=== PATIENT | female | born 1960 | race Caucasian/White ===

== ENCOUNTER 2024-01-14 10:08 | Outpatient (REF) | payer BC, SELFPAY ==
[2024-01-14 11:03] LABS: Prothrombin Time 70.2 SEC (11.1-13.3)
[2024-01-14 11:24] LABS: INTERNATIONAL NORM RATIO 5.8 (0.9-1.1)
== END 2024-01-14 10:09 | disposition home or self-care (01) ==
LOC: HO.LABR 10:08
PROVIDERS: Visit Provider Nurse Practitioner Acute Care
DX: D68.61 Antiphospholipid syndrome (principal)
CPT/HCPCS: 36415; 85610

== ENCOUNTER 2024-01-23 13:30 | Outpatient (REF) | payer BC, SELFPAY ==
[2024-01-23 14:41] LABS: INTERNATIONAL NORM RATIO 1.1 (0.9-1.1); Prothrombin Time 12.8 SEC (11.1-13.3)
== END 2024-01-23 13:31 | disposition home or self-care (01) ==
LOC: HO.LABR 13:30
PROVIDERS: Visit Provider Nurse Practitioner Acute Care
DX: D68.61 Antiphospholipid syndrome (principal)
CPT/HCPCS: 36415; 85610

== ENCOUNTER 2024-01-26 10:39 | Outpatient (REF) | payer BC, SELFPAY ==
[2024-01-26 11:42] LABS: Prothrombin Time 11.6 SEC (11.1-13.3)
== END 2024-01-26 10:40 | disposition home or self-care (01) ==
LOC: HO.LABR 10:39
PROVIDERS: PCP Internal Medicine; Visit Provider Nurse Practitioner Acute Care
DX: D68.61 Antiphospholipid syndrome (principal)
CPT/HCPCS: 36415; 85610

== ENCOUNTER 2024-01-30 13:22 | Outpatient (REF) | payer BC, SELFPAY ==
[2024-01-30 15:07] LABS: INTERNATIONAL NORM RATIO 1.3 (0.9-1.1); Prothrombin Time 16.2 SEC (11.1-13.3)
== END 2024-01-30 13:23 | disposition home or self-care (01) ==
LOC: HO.LAB 13:22
PROVIDERS: PCP Internal Medicine; Visit Provider Nurse Practitioner Acute Care
DX: D68.61 Antiphospholipid syndrome (principal)
CPT/HCPCS: 36415; 85610

== ENCOUNTER 2024-02-01 15:42 | Outpatient (REF) | payer BC, SELFPAY ==
[2024-02-01 16:07] LABS: INTERNATIONAL NORM RATIO 1.8 (0.9-1.1); Prothrombin Time 21.4 SEC (11.1-13.3)
== END 2024-02-01 15:43 | disposition home or self-care (01) ==
LOC: HO.LABR 15:42
PROVIDERS: Visit Provider Nurse Practitioner Acute Care
DX: D68.61 Antiphospholipid syndrome (principal)
CPT/HCPCS: 36415; 85610

== ENCOUNTER 2024-02-06 11:42 | Outpatient (REF) | payer BC, SELFPAY ==
[2024-02-06 12:51] LABS: INTERNATIONAL NORM RATIO 2.4 (0.9-1.1); Prothrombin Time 28.7 SEC (11.1-13.3)
== END 2024-02-06 11:43 | disposition home or self-care (01) ==
LOC: HO.LAB 11:42
PROVIDERS: PCP Internal Medicine; Visit Provider Nurse Practitioner Acute Care
DX: D68.61 Antiphospholipid syndrome (principal)
CPT/HCPCS: 36415; 85610

== ENCOUNTER 2024-02-13 11:48 | Outpatient (REF) | payer BC, SELFPAY ==
[2024-02-13 13:02] LABS: INTERNATIONAL NORM RATIO 3.2 (0.9-1.1); Prothrombin Time 39.2 SEC (11.1-13.3)
== END 2024-02-13 11:49 | disposition home or self-care (01) ==
LOC: HO.LABR 11:48
PROVIDERS: PCP Internal Medicine; Visit Provider Nurse Practitioner Acute Care
DX: D68.61 Antiphospholipid syndrome (principal)
CPT/HCPCS: 36415; 85610

== ENCOUNTER 2024-03-05 13:48 | Outpatient (REF) | payer BC, SELFPAY ==
[2024-03-05 15:19] LABS: INTERNATIONAL NORM RATIO 2.3 (0.9-1.1); Prothrombin Time 28.6 SEC (11.1-13.3)
== END 2024-03-05 13:49 | disposition home or self-care (01) ==
LOC: HO.LAB 13:48
PROVIDERS: PCP Internal Medicine; Visit Provider Nurse Practitioner Acute Care
DX: D68.61 Antiphospholipid syndrome (principal)
CPT/HCPCS: 36415; 85610

== ENCOUNTER 2025-03-12 13:41 | Outpatient (REF) | payer MEDICARE, BC, SELFPAY ==
--- OUTSIDE RECORDS SUMMARY | 2008-06-05 01:00 | XMS_ITS | Encounter Summary ---
Author Organization [facility] Address [address] [place] [address] [address] [place] [address] Phone Care Team Providers Care Records Management Engineer Name Role Phone Unavailable Primary Care Provider Unavailabl e Reason for Visit * MRI/CAT Scan - Closed Specialty Diagnoses / Procedures Referred By Contac t Referred To Contact Procedures CT Abdomen Outside (No Interpretation) Sammi Moraes MD [address] [place], [place] [address] [place] [address] Phone: tel: fax: Referral ID Status Reason Start Date Expiration Date Visits Re quested Visits Authorized [id number] Closed 05/31/2016 05/31/2017 1 1 Encounter Details Date Type Department Care Team (Late st Contact Info) Description 06/05/2008 Hospital Encounter [facility] General Imaging [address] [place] [address] Sammi Moraes MD [address] [place] [address] [address] [place] [address] Social History Tobacco Use Types Packs/Day Years [...] Care Team (Late st Contact Info) Description 03/18/2025 1:45 PM EDT Office Visit [facility] [address] [place] [address] Cheyanne Galdamez MD [address] [facility] [address] [place] [address] documented as of this encounter Procedures Procedure Name Priority Date/Time Associated Diagnosis Comments CT ABDOMEN OUTSIDE (NO INTERPRETATION) Routine 06/05/2008 12:00 AM EST documented in this encounter Results * CT Abdomen Outside (No Interpretation) (06/05/2008 12:00 AM EST) Narrative [facility] [place] [facility] [place] - 05/31/2016 2:20 PM EST This study is for PACS storage only and not for interpretation. us Sammi Moraes MD IMG OUTSIDE IMAGING W/OUT INTE RPRETATION Final Result [facility] [place] [facility] documented in this encounter Visit Diagnoses Not on filedocumented in this encounter Additional Source Comments The information contained in this document represents components of the legal health record. It is not the complete legal health record.[facility]
--- OUTSIDE RECORDS SUMMARY | 2015-01-06 | XMS_ITS | Encounter Summary ---
Author Organization [facility] Address [address] [place] [address] [place] [address] Phone Care Team Providers Care Silica Dry Press Helper Name Role Phone Karen Reich MD Primary Care Provider Reason for Visit * MRI/CAT Scan - Closed Specialty Diagnoses / Procedures Referred By Contac t Referred To Contact Procedures CT Abdomen Outside (No Interpretation) Sammi Moraes MD [address] [place] [address] Phone: tel: fax: Referral ID Status Reason Start Date Expiration Date Visits Re quested Visits Authorized [id number] Closed 05/31/2016 05/31/2017 1 1 Encounter Details Date Type Department Care Team (Late st Contact Info) Description 01/06/2015 Hospital Encounter [facility] [address] [place] [address] Sammi Moraes MD [address] [place] [address] Social History Tobacco Use Types Packs/Day Years [...] Visit [facility] [address] [place] [address] Cheyanne Galdamez MD [address] [place] [address] [address] [place] [address] documented as of this encounter Procedures Procedure Name Priority Date/Time Associated Diagnosis Comments CT ABDOMEN OUTSIDE (NO INTERPRETATION) Routine 01/06/2015 12:00 AM EDT documented in this encounter Results * CT Abdomen Outside (No Interpretation) (01/06/2015 12:00 AM EDT) Narrative [facility] [place] [place]FACES - 05/31/2016 2:20 PM EST This study is for PACS storage only and not for interpretation. Sammi Moraes MD IMG OUTSIDE IMAGING W/OUT INTE RPRETATION Final Result [facility] [place] [facility] documented in this encounter Visit Diagnoses Not on filedocumented in this encounter Care Teams Silica Dry Press Helper Relationship Specialty Start Date End Date Karen Reich MD [address] [place] [address] PCP - General 01/07/14 documented as of this encounter Additional Source Comments The information contained in this document represents components of the legal health record. It is not the complete legal health record.[facility]
[2025-03-12 14:44] LABS: INTERNATIONAL NORM RATIO 2.9 (0.9-1.1); Prothrombin Time 33.2 SEC (10.9-12.4)
--- OUTSIDE RECORDS SUMMARY | 2025-03-12 14:57 | XMS_ITS | Encounter Summary ---
Author Organization [facility] Address [address] [place] [address] [address] [place] [address] Phone Care Team Providers Care Respooler Name Role Phone Karen Reich MD Primary Care Provider Terrell Canales MD Unavailable [phone] Anjana Luna MD Unavailable [phone] Daniel Frederick MD Unavailable [phone] Aston Bolanos MD Unavailable [phone] Encounter Details Date Type Department Care Team (Late Contact Info) Description 08/03/2016 Procedure Pass [facility] [address] [place] [address] Social History Tobacco Use Types Packs/Day Years Used Date Smoking Tobacco: Never Alcohol Use Standard Drinks/Week Comments No 0 (1 standard drink = 0.6 oz pur e alcohol) Comments Unknown Sex and Gender Information Value Date Recorded Sex Assigned at Not on file Legal Sex Female 7:02 PM EST Gender Identity Not on file Sexual Orientation Not on file documented as of this encounter Plan of Treatment Upcoming Encounters Date Type Department Care Team (Late Contact Info) Description 03/18/2025 1:45 PM EDT Office Visit [facility] [address] [place] [phone] Cheyanne Galdamez MD [address] [place] [address] [address] [place] [address] documented as of this encounter Visit Diagnoses Not on filedocumented in this encounter Additional Health Concerns Assessment Noted Time PHQ-2 Depression Total Score: 0 06/08/20 16 1:53 PM EST documented as of this encounter Care Teams Respooler Relationship Specialty Start Date End Date Karen Reich MD [address] [place] [address] PCP - General 01/07/14 Terrell Canales MD [address] [place] [address] General Surgery 02/15/19 Anjana Luna MD [address] [place] [address] [email or web address] Hematology and Oncology 02/15/19 Daniel Frederick MD [address] [place] [address] [email or web address] Radiation Oncology 02/15/19 Aston Bolanos MD [address] [place] [address] [email or web address] 02/26/19 documented as of this encounter Additional Source Comments The information contained in this document represents components of the legal health record. It is not the complete legal health record.[facility]
--- OUTSIDE RECORDS SUMMARY | 2025-03-12 14:57 | XMS_ITS | Clinical Summary ---
Author Organization [facility] Address [address] [place] [address] Phone Care Team Providers Care Chain Hoist Operator Name Role Phone Karen Reich MD Primary Care Provider Terrell Canales MD Unavailable [phone] Anjana Luna MD Unavailable [phone] Daniel Frederick MD Unavailable [phone] Aston Bolanos MD Unavailable [phone] Allergies Active Allergy Reactions Criticality Noted Date Comments Bactrim (Sulfamethoxazole-Tri methoprim) Fever High 12/16/2015 Fentanyl Shortness Of Breath High 11/30/2022 Fentanyl Citrate (Pf) Medium 12/29/2022 Other reaction(s): Hypoxia Lisinopril Other (See Comments) Low 07/08/2016 Other reaction(s): Other (See Comments) cough Other reaction(s): Cough Sulfamethoxazole-Trim ethoprim Itching,Hives,Rash,F ever,Other (See Comments) High 02/02/2010 Other reaction(s): FEVER, HIVES, ITCHING, RASH, Urticarial Rash fever Medications atorvastatin (LIPITOR) 40 MG tablet daily. 5 Active FLUoxetine (PROZAC) 20 MG tablet 40 mg daily. 5 Active hydrochlorothi azide (HYDRODIURIL) 25 MG tablet daily. 5 Active losartan (COZAAR) 100 MG tablet daily. 5 Active metFORMIN (GLUCOPHAGE) 500 MG tablet Take 1,000 mg by mouth 2 (two) times a day. 5 Active omeprazole (PRILOSEC) 40 MG capsule Take 40 mg by mouth daily. 8 Active warfarin (COUMADIN) 2.5 MG tablet Take 2.5 mg by mouth daily. Alternates between 2.5 mg and 5 mg daily 7 Active budesonide-for moterol (SYMBICORT) 80-4.5 mcg/actuation inhaler Inhale 2 puffs into the lungs 2 (two) times a day. Active metoprolol succinate 100 mg CSpX Take 100 mg by mouth daily. Active tiotropium (SPIRIVA HANDIHALER) 18 mcg inhalation capsule Inhale 18 mcg into the lungs daily. Active levalbuterol (XOPENEX HFA) 45 mcg/actuation inhaler Inhale 1-2 puffs into the lungs every 4 (four) hours as needed for wheezing. Active fluticasone propionate (FLONASE) 50 mcg/actuation nasal spray 1 spray by Nasal route daily. Active montelukast (SINGULAIR) 10 mg tablet TAKE 1 TABLET AT BEDTIME 90 tablet 5 7 Active acetaminophen (TYLENOL) 325 mg tablet Take 650 mg by mouth every 6 (six) hours as needed for mild pain. Active calcium carbonate-yuliet min D3 1500 mg (600 mg elemental)-400 units per tablet Take 1 tablet by mouth 2 (two) times a day. Active finasteride (PROSCAR) 5 mg tablet Take 5 mg by mouth daily. Active ketoconazole 2 % cream Apply 1 application topically daily. Active LORazepam (ATIVAN) 0.5 MG tablet Take 0.5 mg by mouth 2 (two) times a day as needed for anxiety. Active betamethasone, augmented, (DIPROLENE) 0.05 % ointmentIndica tions:Malignan t neoplasm of upper-outer quadrant of left breast in female, estrogen receptor positive Apply topically 2 (two) times a day. 30 g 3 9 Active ASCORBIC ACID ORAL C 500 500 MG TABS Ac tive triamcinolone acetonide 0.1 % cream TRIAMCINOLONE ACETONIDE 0.1 % CREA 3 Active levothyroxine (SYNTHROID,LEV OTHROID) 25 MCG tablet Take 25 mcg by mouth daily. 3 Active Active Problems Problem Noted Date Diagnosed Date History of basal cell carcinoma (BCC) 12/02/2022 Overview (12/13/2024): 09/09/22: Left [place]: Bcc sup/nod tx mohs 12/13/24 approx 09/2016, left upper back, tx ED&C--outside derm no path on file Inflamed seborrheic keratosis 09/09/2022 Melanocytic nevi of trunk 09/10/20212022 Unspecified lump in the left breast, upper outer quadrant 04/22/2021 11/26/2022 Milia 12/25/2020 11/26/2022 Other rosacea 10/02/2020 11/26/2022 Lichen simplex chronicus 04/23/2020 023 Plantar wart 02/28/2020 11/26/2022 Granuloma annulare 12/26/2019 11/26/2022 Eczematid-like purpura of doucas and kapetanakis 10/25/2019 11/26/2022 Malignant neoplasm of upper- outer quadrant of left breast in female, estrogen receptor positive 02/26/2019 Abnormal chest xray 02/15/2019 11/26/2022 Pulmonary nodule, left 02/15/2019 3 Malignant neoplasm of central portion of left fe male breast 02/12/2019 12/17/2022 Other viral warts 12/25/2018 11/26/2022 Intrinsic (allergic) eczema 06/26/201811/08 Seborrheic dermatitis 06/26/2018 11/26/2022 Antiphospholipid antibody syndrome 03/18/2017 11/26/2022 Seborrheic keratosis 03/18/2017 12/17/2022 Asthma 10/08/2014 Overview (06/18/2015): Asthma Congestive heart failure 10/08/2014 Overview (06/18/2015): Congestive heart failure Diabetes mellitus 07/15/2011 Overview (08/31/2014): Diabetes mellitus Hypertensive disorder 07/15/2011 Overview (08/31/2014): Hypertensive disorder Thyroid nodule 05/23/2008 Overview (08/31/2014): Thyroid nodule Resolved Problems Problem Noted Date Diagnosed Date Resolved Date Basal cell carcinoma (BCC) o f helix of left ear 12/10/2024 12/13/2024 Overview (12/13/2024): 09/09/22: Left [place]: Bcc sup/nod tx mohs 12/13/24 Encounters Date Type Department Care Team Description 12/27/2024 2:15 PM EDT Office Visit [facility], [address] [phone] Catrachito Raymundo MD Encounter for removal of sutures (Primary Dx) 12/13/2024 1:30 PM EDT Office Visit [facility], [address] [phone] Catrachito Raymundo MD Basal cell carcinoma (BCC) of helix of left ear (Primary Dx); History of basal cell carcinoma (BCC) from Last 3 Months Immunizations Immunization Administration Dates Next Due Influenza, Unspecified Formulation 07/15/2011, Pneumococcal polysaccharide PPSV23 07/15/2011 Family History Medical History Relation Comments Breast cancer Paternal Grandmother Relation Status Comments Paternal Grandmother Social History Tobacco Use Types Packs/Day Years [...] on file Sexual Orientation Not on file Last Filed Vital Signs Vital Sign Reading Time Taken Comments Blood Pressure 137/79 03/03/2023 9:45 AM EDT Pulse 71 03/03/2023 9:45 AM EDT Temperature 36.3 C (97.4 F) 03/03/2023 9:45 AM EDT Respiratory Rate 20 03/03/2023 9:45 AM EDT Oxygen Saturation 98% 03/03/2023 9:45 AM EDT Inhaled Oxygen Concentration - - Weight 87 kg (191 lb 12.8 oz) 03/03/2023 9:45 AM EDT Height 167.6 cm (5' 6 ) 02/01/2022 1:06 PM EDT Body Mass Index 30.96 02/01/2022 1:06 PM EDT Plan of Treatment Upcoming Encounters Date Type Department Care Team (Late st Contact Info) Description 03/18/2025 1:45 PM EDT [facility] [address] [place] [phone] Cheyanne Galdamez MD [address] [place] [address] [address] [place] [address] Health Maintenance Due Date Last Done Comments Adult Td,Tdap Booster 1960 POTASSIUM LEVEL 1960 HEPATITIS C SCREENING 12/21/1977 HIV ONE-TIME SCREENING (18-65 YEARS) 12/21/1977 COLOGUARD 12/21/2004 COLONOSCOPY 12/21/2004 COLORECTAL CANCER SCREENING 12/21/2004 FIT TEST 12/21/2004 FOBT 12/21/2004 SIGMOIDOSCOPY 12/21/2004 VIRTUAL COLONOSCOPY 12/21/2004 PNEUMOCOCCAL VACCINES (50+ years) (2 of 2 - PCV) 07/15/2012 07/15/2011 DIABETIC EYE EXAM 08/31/2014 DEPRESSION SCREENING 04/12/2018 04/12/2017 RSV VACCINE (1 - Risk 60-74 years 1-dose series) 2019 ZOSTER VACCINES (2 of 2) 07/03/2020 05/08/2020 BLOOD PRESSURE 09/03/2023 03/03/2023 CREATININE LEVEL 11/21/2024 11/22/2023 INFLUENZA VACCINE (#1) 2025 , 04/19/2019, 03/22/2018, Additional history exists COVID-19 VACCINE ( season) 2025 HEMOGLOBIN A1C 05/30/2025 11/27/2024, 05/2 , 05/03/2024, Additional history exists TSH LEVEL 07/13/2025 07/13/2024, 06/10, 02/20/2024, Additional history exists MAMMOGRAM 03/08/2026 03/08/2024, 01/08, 12/25/2018, Additional history exists OSTEOPOROSIS SCREENING INITIAL (ONE-TIME) Completed 08/24/2021, 02/08/2019 SMOKING STATUS SCREENING (Once After 26 Yrs) Completed 03/03/2023 HEPATITIS A VACCINES Aged Out No long er eligible based on patient's age to complete this topic HIB VACCINES Aged Out No longer eligi ble based on patient's age to complete this topic MENINGOCOCCAL VACCINES (ACWY) Aged Out No longer eligible based on patient's age to complete this topic MENINGOCOCCAL VACCINES (B) Aged Out N o longer eligible based on patient's age to complete this topic Medical Devices Not on file Procedures Procedure Name Priority Date/Time Associated Diagnosis Comments BI MAMMOGRAM SCREENING WITH TOMOSYNTHESIS WITH CAD (BILATERAL) 03/08/2024 1:47 PM EDT TSH WITH REFLEX Routine 10/24/2015 10:09 AM EDT Thyroid nodule from Last 3 Months or Most Recently Relevant to Health Maintenance Results * Mammogram Screening With Tomosynthesis With CAD (Bilateral) (03/08/2024 1:47 PM EDT) Anatomical Region Laterality Modality Breast Left, Breast Right, Breast Bilateral Bila teral Breast Screening 03/08/2024 1:47 PM EDT Narrative 03/08/2024 4:34 PM EDT [facility] Department of Radiology [id number] Screening Bilateral with Josef PATIENT HISTORY: 63 years old woman for routine bilateral screening mammogram. Screening Bilateral with Josef: 03/08/2024 - Exam #: [id number] COMPARISON: Multiple studies dating back to 2020. TISSUE DENSITY: There are scattered areas of fibroglandular density. FINDINGS: No suspicious calcifications, masses or other abnormalities are seen. Multiple surgical clips are seen in the upper outer posterior left breast along with mild distortion consistent with prior surgery. The results of this exam have been conveyed to the patient in writing. The patient was entered into a reminder system for a target due date for patient's next mammogram. Full field 2D digital mammography was used to obtain images. Computer aided detection was used to aid in interpretation. Digital breast tomosynthesis was performed and used in the interpretation of the images. IMPRESSION: 1. No significant interval change in the appearance of the breasts. 2. Negative, no evidence of malignancy. ASSESSMENT: Overall - BIRADS Code 1: Negative RECOMMENDATION: Screening Mammogram of both breasts in 1 year. Reported By: Allan Bearden MD Signed By: Allan Bearden MD Procedure Note Allan Bearden MD - 03/08/2024 [facility] Department of Radiology [id number] Screening Bilateral with Josef PATIENT HISTORY: 63 years old woman for routine bilateral screening mammogram. Screening Bilateral with Josef: 03/08/2024 - Exam #: [id number] COMPARISON: Multiple studies dating back to 2020. TISSUE DENSITY: There are scattered areas of fibroglandular density. FINDINGS: No suspicious calcifications, masses or other abnormalities are seen. Multiple surgical clips are seen in the upper outer posterior left breast along with mild distortion consistent with prior surgery. The results of this exam have been conveyed to the patient in writing. The patient was entered into a reminder system for a target due date for patient's next mammogram. Full field 2D digital mammography was used to obtain images. Computer aided detection was used to aid in interpretation. Digital breast tomosynthesis was performed and used in the interpretation of the images. IMPRESSION: 1. No significant interval change in the appearance of the breasts. 2. Negative, no evidence of malignancy. ASSESSMENT: Overall - BIRADS Code 1: Negative RECOMMENDATION: Screening Mammogram of both breasts in 1 year. Reported By: Allan Bearden MD Signed By: Allan Bearden MD us Provider Not In System PhD IMG MG EXAMS Final Result * Thyroid screening panel ([facility] Only) (10/24/2015 10:09 AM EDT) SCREENING PANEL: TSH 2.77 0.40 - 5.00 uIU/mL [facility] 10/24/2015 10:0 9 AM EDT 10/24/2015 1:19 PM EDT us Miko Rosado MD LAB BLOOD ORDERABLES Final Res ult [facility] [address] [place] [address] from Last 3 Months or Most Recently Relevant to Health Maintenance Insurance PPO EPO [facility] PPO EPO [facility] PPO EPO [facility] PPO EPO [facility] PPO EPO [facility] PPO [facility]PO PPO EPO [facility] PPO EPO Care Teams Chain Hoist Operator Relationship Specialty Start Date End Date Karen Reich MD [address] [place] [address] PCP - General 01/07/14 Terrell Canales MD [address] [place] [address] General Surgery 02/15/19 Anjana Luna MD [address] [place] [address] [email or web address] Hematology and Oncology 02/15/19 Daniel Frederick MD [address] [place] [address] [email or web address] Radiation Oncology 02/15/19 Aston Bolanos MD [address] [place] [address] [email or web address] [place] 02/26/19 Additional Source Comments The information contained in this document represents components of the legal health record. It is not the complete legal health record.[facility]
--- OUTSIDE RECORDS SUMMARY | 2025-03-12 14:57 | XMS_ITS | Encounter Summary ---
Author Organization [facility] Address [address] [place] [address] [address] [place] [address] Phone Care Team Providers Care Senior Applications Engineer Name Role Phone Karen Reich MD Primary Care Provider Terrell Canales MD Unavailable [phone] Anjana Luna MD Unavailable [phone] Danile Frederick MD Unavailable [phone] Aston Bolanos MD Unavailable [phone] Encounter Details Date Type Department Care Team (Late Contact Info) Description 05/31/2016 Procedure Pass [facility] Imaging [address] [place] [address] Social History Tobacco Use Types Packs/Day Years Used Date Smoking Tobacco: Never Smokeless Tobacco: Never Alcohol Use Standard Drinks/Week Comments Yes 0 (1 standard drink = 0.6 oz pur e alcohol) Rarely Comments Unknown Sex and Gender Information Value Date Recorded Sex Assigned at Not on file Legal Sex Female 7:02 PM EST Gender Identity Not on file Sexual Orientation Not on file documented as of this encounter Plan of Treatment Upcoming Encounters Date Type Department Care Team (Late Contact Info) Description 03/18/2025 1:45 PM EDT Office Visit [facility] [address] [place] [phone] Cheyanne Galdamez MD [address] [place] [address] [address] [place] [address] documented as of this encounter Visit Diagnoses Not on filedocumented in this encounter Care Teams Senior Applications Engineer Relationship Specialty Start Date End Date Karen Reich MD [address] [place] [address] PCP - General 01/07/14 Terrell Canales MD [address] [place] [address] General Surgery 02/15/19 Anjana Luna MD [address] [place] [address] [email or web address] Hematology and Oncology 02/15/19 Daniel Frederick MD [address] [place] [address] [email or web address] Radiation Oncology 02/15/19 Aston Bolanos MD [address] [place] [address] [email or web address] Cardiology 02/26/19 documented as of this encounter Additional Source Comments The information contained in this document represents components of the legal health record. It is not the complete legal health record.[facility]
--- OUTSIDE RECORDS SUMMARY | 2025-03-12 14:57 | XMS_ITS | Encounter Summary ---
Author Organization [facility] Address [address] [place] [address] [address] [place] [address] Phone Care Team Providers Care Poultry Sexer Name Role Phone Karen Reich MD Primary Care Provider Terrell Canales MD Unavailable [phone] Anjana Luna MD Unavailable [phone] Daniel Frederick MD Unavailable [phone] Aston Bolanos MD Unavailable [phone] Encounter Details Date Type Department Care Team (Late Contact Info) Description 05/31/2016 Procedure Pass [facility] [address] [place] [address] Social History Tobacco Use Types Packs/Day Years [...] Office Visit [facility] [address] [place] [phone] Cheyanne Galdamez MD [address] [place] [address] [address] [place] [address] documented as of this encounter Visit Diagnoses Not on filedocumented in this encounter Care Teams Poultry Sexer Relationship Specialty Start Date End Date Karen Reich MD [address] [place] [address] PCP - General 01/07/14 Terrell Canales MD [address] [place] [address] General Surgery 02/15/19 Anjana Luna MD [address] [place] [address] [email or web address]. [place] Hematology and Oncology 02/15/19 Daniel Frederick MD [address] [place] [address] [email or web address] Radiation Oncology 02/15/19 Aston Bolanos MD [address] [place] [address] [email or web address] Cardiology 02/26/19 documented as of this encounter Additional Source Comments The information contained in this document represents components of the legal health record. It is not the complete legal health record.[facility]
--- OUTSIDE RECORDS SUMMARY | 2025-03-12 14:58 | XMS_ITS | Clinical Summary ---
Author Organization [facility] Address [address] [place] [address] Care Team Providers Care Wire Stitcher Name Role Phone Karen Reich Primary Care Provider [phone] Allergies Active Allergy Reactions Criticality Noted Date Comments Sulfamethoxazole W-Trimethoprim Urticarial Rash,Other 08/26/2015 fever Medications Warfarin Sodium 5 MG Tab take as directed Active MetFORMIN HCl 500 MG Tab 1 TABLET TWICE DAILY WITH FOOD Active Hydrochlorothia zide 25 MG Tab 1 TABLET DAILY Active Omeprazole 40 MG CAPSULE DELAYED RELEASE 1 CAPSULE DAILY Active Montelukast Sodium (SINGULAIR) 10 MG Tab 1 TABLET EVERY EVENING Active ALBUTEROL SULFATE (PROAIR HFA) 108 (90 BASE) MCG/ACT Aero Soln None Entered Active Simvastatin 20 MG Tab 1 TABLET AT BEDTIME Active Active Problems Problem Noted Date Diagnosed Date Chronic left hip painPT 04/11/2021 Left leg pain Pt 04/11/2021 Achilles tendinitis of both lower extremitiesPT 02/18/2021 Obstructive sleep apnea 04/15/2015 Immunizations Immunization Administration Dates Next Due COVID-19, mRNA (Pfizer Pre F all 2022) Monovalent, 30 mcg/0.3 ml 10/21/2020 Social History Tobacco Use Types Packs/Day Years Used Date Smoking Tobacco: Never Alcohol Use Standard Drinks/Week Comments Not Asked 0 (1 standard drink = 0.6 oz pur e alcohol) Intimate Partner Violence Answer Date R ecorded Fear of Current or Ex-Partner Not on file Emotionally Abused Not on file 03/12/2023 Physically Abused Not on file 03/12/2023 Sexually Abused Not on file 03/12/2023 Feel Safe at Home Not on file 03/12/2023 Comments No Sex and Gender Information Value Date Recorded Sex Assigned at Not on file Legal Sex Female 3:01 PM EDT Gender Identity Not on file Sexual Orientation Not on file Last Filed Vital Signs Vital Sign Reading Time Taken Comments Blood Pressure 130/80 01/21/2016 5:21 PM EDT Pulse 78 01/21/2016 5:21 PM EDT Temperature 36.8 C (98.2 F) 01/21/2016 5:21 PM EDT Respiratory Rate 16 01/21/2016 5:21 PM EDT Oxygen Saturation - - Inhaled Oxygen Concentration - - Weight 102 kg (225 lb) 01/21/2016 5:21 PM EDT Height 170.2 cm (5' 7 ) 01/28/2015 10:27 AM EDT Body Mass Index 35.24 01/28/2015 10:27 AM EDT Plan of Treatment Health Maintenance Due Date Last Done Comments Hepatitis C Screening 1960 DTaP/Tdap/Td (1 - Tdap) 12/21/1977 Mammogram/Breast Imaging 1999 Colon Cancer Screening 12/21/2004 Pneumococcal 50+ years (1 of 1 - PCV) 12/21/2009 Zoster (Shingrix) (1 of 2) 12/21/2009 Bone Density 12/21/2024 COVID-19 Vaccine (3 - season) 2025 11/18/2020, 10/21/2020 Influenza (#1) 2025 04/10/2021, 04/11, 04/19/2019, Additional history exists RSV (1 - 1-dose 75+ series) 12/21/2034 HPV Vaccine (No Doses Required) Completed Hep A Aged Out No longer eligi ble based on patient's age to complete this topic Hep B Aged Out No longer eligi ble based on patient's age to complete this topic Hib Aged Out No longer eligi ble based on patient's age to complete this topic Meningococcal ACWY Aged Out No longer eligible based on patient's age to complete this topic Pap Smear Discontinued Zoster (Zostavax) Discontinued Insurance [employer] FEE FOR SERVICE PPO Care Teams Wire Stitcher Relationship Specialty Start Date End Date Karen Reich [address] [place] [id number] PCP - General Internal Medicine 12/05/14
--- OUTSIDE RECORDS SUMMARY | 2025-03-12 14:58 | XMS_ITS | Encounter Summary ---
Author Organization [facility] Address [address] [place] [address] Care Team Providers Care Digital X Ray Service Engineer Name Role Phone Karen Reich MD Primary Care Provider [phone] Encounter Details Date Type Department Care Team ([facility] st Contact Info) Description 02/27/2025 Results Follow-Up [facility] Cardiology [address] [place] [address] Scott Goncalves MD [address] [place] [address] Social History Tobacco Use Types Packs/Day Years Used Date Smoking Tobacco: Never Passive Smoke Exposure: Never Smokeless Tobacco: Never Comments:: Alcohol Use Standard Drinks/Week Comments Not Currently 0 (1 standard drink = 0.6 oz pur e alcohol) [facility] Utilities Answer Date Recorded In the past 12 months has e electric, gas, oil, or water company threatened to shut off services in your home? Already shut off 07/26/2024 Hunger Vital Sign Answer Date Recorded Within the past 12 months, y ou worried that your food would run out before you got the money to buy more. Never true 07/26/19 25 Within the past 12 months, t he food you bought just didn't last and you didn't have money to get more. Never true 07/26/2024 Transportation Answer Date Recorded In the past 12 months, has l ack of reliable transportation kept you from medical appointments, meetings, work or from getting things needed for daily living? No 07/26/2024 Housing Answer Date Recorded Housing Risk Low Not on file 07/26/2024 Housing Risk Medium 1 07/26/2024 Housing Risk High 1 07/26/2024 What is your living situation today? 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 Not on file Not on file Not on file documented as of this encounter Plan of Treatment Upcoming Encounters Date Type Department Care Team (Late st Contact Info) Description 03/13/2025 2:00 PM EDT Telehealth [facility] Antico[facility] [address] [place] [address] Phd Internship: Al Zhou NP [address] [place] [address] Arrived 03/20/2025 1:30 PM EDT Follow-Up [facility] [address] [place] [address] Shawna Camara MD [address] [place] [address] 03/25/2025 1:00 PM EDT Evaluation [facility] at [address] [place] [address], [address] [address] Phd Internship: Keke Nath PT 03/28/2025 1:15 PM EDT Follow-Up [facility] at [address] [phone] Reina Key OD [address] [place] [address] 03/28/2025 4:20 PM EDT Follow-Up [facility] Building Podiatry [address] [place] [address] Phd Internship: Mel Whitman NP [address] [place] [address] 05/07/2025 3:40 PM EDT Office Visit [facility] Plastic Cosmetic Surgery [address] [place] [address] Phd Internship: Segun Girard MD [address] [place] [address] 12/18/2025 1:00 PM EDT Office Visit [facility] plasma processing technician [address] [place] [address] Libia Bhat MD [address] [place] [address] 12/23/2025 2:40 PM EDT Follow-Up [facility] Endocrinology Clinic [address] [place] [address] Phd Internship: Bran Hobbs MD [address] [place] [address] 12/23/2025 3:45 PM EDT Follow-Up [facility] B [address] [place] [address] Donnie Brasher MD [address] [place] [address] 12/24/2025 10:30 AM EDT Office Visit [facility] Diabetes [facility] [address] [place] [address] Phd Internship: Alfredo Rendon MD [address] [place] [address] 12/24/2025 1:00 PM EDT Follow-Up [facility] [address] [place] [address] Phd Internship: Ayse Resendiz MD [address] [place] [address] 12/27/2025 2:40 PM EDT Office Visit [facility] [address] [place] [address] Phd Internship: Martín Sanchez MD [address] [place] [address] 01/21/2026 3:30 PM EDT Follow-Up [facility] 4th floor Cardiology Medicine [address] [place] [address] Phd Internship: Scott Hutson MD [address] [place] [address] documented as of this encounter Visit Diagnoses Not on filedocumented in this encounter Care Teams Digital X Ray Service Engineer Relationship Specialty Start Date End Date Karen Reich MD [address] [place] [address] PCP - General Internal Medicine 01/27/17 documented as of this encounter
--- OUTSIDE RECORDS SUMMARY | 2025-03-12 14:58 | XMS_ITS | Encounter Summary ---
Author Organization [facility] Address [address] [place] [address] Care Team Providers Care Rn Residential Name Role Phone Karen Reich MD Primary Care Provider Reason for Visit * Reason Onset Date Comments Med Refill 03/08/2025 Encounter Details Date Type Department Care Team (Late st Contact Info) Description 03/08/2025 Refill [facility] 4th floor Cardiology Medicine [address] [place] [address] Rock Loader: Scott Hutson MD [address] [place] [address] Social History Tobacco Use Types Packs/Day Years Used Date Smoking Tobacco: Never Passive Smoke Exposure: Never Smokeless Tobacco: Never Comments:: Alcohol Use Standard Drinks/Week Comments Not Currently 0 (1 standard drink = 0.6 oz pur e alcohol) [facility] Utilities Answer Date Recorded In the past 12 months has [employer], gas, oil, or water [employer] threatened to shut off services in your [...] Info) Description 03/13/2025 2:00 PM EDT Telehealth [facility] Anticoagulation Clinic [address] [place] [address] Rock Loader: Al Zhou NP [address] [place] [address] Arrived 03/20/2025 1:30 PM EDT Follow-Up [facility] [address] [place] [address] Shawna Camara MD [address] [place] [address] 03/25/2025 1:00 PM EDT Evaluation [facility] at [address] [place] [address], [address] [address] Rock Loader: Keke Nath, PARI 03/28/2025 1:15 PM EDT Follow-Up [facility] at [address] [phone] Reina Key, OD [address] [place] [address] 03/28/2025 4:20 PM EDT Follow-Up [facility] Podiatry [address] [place] [address] Rock Loader: Mel Whitman NP [address] [place] [address] 05/07/2025 3:40 PM EDT Office Visit [facility] Plastic Cosmetic Surgery [address] [place] [address] Rock Loader: Segun Girard MD [address] [place] [address] 12/18/2025 1:00 PM EDT Office Visit [facility] block out machine operator [address] [place] [address] Libia Bhat MD [address] [place] [address] 12/23/2025 2:40 PM EDT Follow-Up [facility] Endocrinology Clinic [address] [place] [address] Rock Loader: Bran Hobbs MD [address] [place] [address] 12/23/2025 3:45 PM EDT Follow-Up [facility] B [address] [place] [address] Donnie Brasher MD [address] [place] [address] 12/24/2025 10:30 AM EDT Office Visit [facility] [address] [place] [address] Rock Loader: Alfredo Rendon MD [address] [place] [address] 12/24/2025 1:00 PM EDT Follow-Up [facility] Rheumatology Clinic [address] [place] [address] Rock Loader: Ayse Resendiz MD [address] [place] [address] 12/27/2025 2:40 PM EDT Office Visit [facility] [address] [place] [address] Rock Loader: Martín Sanchez MD [address] [place] [address] 01/21/2026 3:30 PM EDT Follow-Up [facility] 4th floor Cardiology Medicine [address] [place] [address] Rock Loader: Scott Hutson MD [address] [place] [address] documented as of this encounter Visit Diagnoses Not on filedocumented in this encounter Care Teams Rn Residential Relationship Specialty Start Date End Date Karen Reich MD [address] [place] [phone] PCP - General Internal Medicine 01/27/17 documented as of this encounter
--- OUTSIDE RECORDS SUMMARY | 2025-03-12 14:58 | XMS_ITS ---
Author Organization [facility] Address [address] [place] [address] Care Team Providers Care Automation Tender Name Role Phone Karen Reich MD Primary Care Provider [phone] Active Problems * This document contains information received from the source organization and may not represent a complete record from that organization. Problem Noted Date Diagnosed Date Iron deficiency anemia 12/25/2024 Acute cough 11/06/2024 Overview (11/06/2024): Patient presents with acute cough which was evaluated at an urgent care clinic. She had a negative COVID test she is not sure whether flu was tested. She was started on azithromycin and Augmentin for possible community-acquired pneumonia. She does report that there may have been some findings on her chest x-ray but we do not have the report to look at currently. She feels much improved already on the antibiotics. Assessment & Plan (11/06/2024 1:26 PM EDT): She will complete the course of antibiotics. She will continue her Symbicort and as needed Xopenex. She will follow-up if symptoms worsen Hemangioma of abdominal wall 07/12/2024 Overview (07/12/2024): Patient has an abdominal wall mass that was ultrasounded and biopsied. 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 She is concerned and feels that the size has increased modestly Assessment & Plan (07/12/2024 12:52 PM EST): Referral to vascular surgery to consider removal Closed three column fracture of thoracic vertebra with delayed healing, subsequent encounter 05/07/2024 Compression fracture of body of thoracic vertebr a 04/09/2024 Benign paroxysmal positional vertigo 02/29/2024 Assessment & Plan (02/29/2024 6:54 PM EDT): Referral for vestibular PT was placed Subclinical hypothyroidism 03/07/2023 Overview (07/12/2024): Patient was previously on levothyroxine 25 mcg daily. She increased her dose to 37.5 mcg daily due to some fatigue and feels better. Assessment & Plan (07/12/2024 12:52 PM EST): TSH will be checked after she has been on the higher dose for 6 weeks. I think it would be fine to aim to run her TSH under 2.0 if she is feeling better on the higher dose. Need to take care given her history of A-fib. Vitamin B12 deficiency 12/29/2022 Overview (12/29/2022): Patient had a low normal vitamin B12 level in 10/31. She is on metformin which can cause vitamin B12 deficiency. Assessment & Plan (02/04/2023 7:07 AM EDT): She is on vitamin B12 supplementation which she will continue. Assessment & Plan (12/29/2022 11:19 AM EDT): A prescription for vitamin B12 was in to her pharmacy she will take 1000 mg daily. Enteritis 11/04/2022 Overview (11/04/2022): As noted patient presented recently with acute nausea vomiting with some abdominal discomfort. CT scan showed enteritis involving small bowel. Assessment & Plan (11/04/2022 6:05 PM EDT): Differential includes infectious enteritis, inflammatory bowel disease such as Crohn's especially in light of her chronic diarrhea symptoms or viral gastroenteritis on top of chronic symptoms. Hopefully the upper endoscopy can be added to her colonoscopy procedure. She has already spoken to gastroenterology about that. Refills were sent for her ondansetron to use for her nausea Diarrhea 04/28/2022 Overview (06/02/2024): Patient does report some ongoing diarrhea. She is up-to-date with colonoscopy done in 11/30. She does not have any bright red blood per rectum or constitutional symptoms. She is not experiencing any fever or abdominal pain. She has not been on any antibiotics other than preop antibiotics however symptoms started prior to that. The symptoms have been intermittent alternating with constipation. Assessment & Plan (06/02/2024 4:04 PM EST): CBC and comprehensive metabolic checked. Her symptoms do not sound consistent with an infectious etiology therefore will not order any stool studies at this time. Could be related to some irritable bowel syndrome she has had some alternating constipation. Was advised to increase hydration increase fiber in her diet. If symptoms persist may need further workup. Assessment & Plan (04/28/2022 3:57 PM EDT): Stool studies were ordered. She will complete the stool studies if the symptoms persist. I ordered stool calprotectin, fecal leuks, ova and parasites and stool culture. Trochanteric bursitis of left hip 12/18/2021 Assessment & Plan (12/18/2021 4:29 PM EDT): -Advised to resume exercises for her hips. -She will let me know if she needs a new referral to PT -Can consider a trochanteric bursa injection but due to close proximity of foreign material, perhaps this should be decided by the Orthopedic doctor who did the ORIF. Chronic heart failure with preserved ejection fr action 12/18/2021 Overview (12/29/2022): Patient has history of diastolic dysfunction likely related to chronic hypertension. She has not had any recent cardiac symptoms. Blood pressure is well controlled. She is followed in the cardiology clinic. Assessment & Plan (02/29/2024 6:54 PM EDT): She will continue current medications which includes spironolactone, losartan, hydrochlorothiazide and metoprolol Assessment & Plan (12/29/2022 11:26 AM EDT): She will continue current regimen. Lumbar radicular pain 01/08/2021 Overview (03/11/2021): As noted patient has history of osteoarthritis, left hip fracture status post ORIF 2 years ago and degenerative disc disease. She has had approximately 3 months of left low back pain with left hip pain. X-ray did not reveal any significant pathology in the hip and confirms hardware intact and no significant joint space narrowing. She does have evidence of multilevel degenerative disc disease most advanced at the L4/5 level. Recently obtained MRI does reveal degenerative disc disease with moderate neuroforaminal narrowing on the left at L1-L2 and L3-L5. Assessment & Plan (03/11/2021 6:00 PM EDT): Patient would like to try some physical therapy for this. She is also interested in a referral to the spine clinic to discuss possible full epidural steroid injection. [facility]. She will be referred to Dr. Acuña for evaluation for possible injection. Assessment & Plan (01/08/2021 2:01 PM EDT): Given her ongoing symptoms I do think it is reasonable to obtain an MRI of the lumbar spine at this point. She may benefit from epidural steroid injections. She is limited in what she can take for pain medications given her underlying anticoagulation and multiple medical problems. She will continue to use the Tylenol. I will order the MRI and depending on the results she may require physiatry referral for possible consideration of an epidural steroid injection. Primary osteoarthritis of both hands 10/09/2020 Assessment & Plan (10/09/2020 10:58 AM EDT): -Not interfering with every day activities. -Voltaren gel to apply topically 3 times a day or 4 times a day prescribed (can also get OTC). Invasive ductal carcinoma of breast, left 2018 Overview (09/06/2019): Patient has been diagnosed with invasive ductal carcinoma of the left breast which pathology has revealed is ER/OR positive and HER-2 negative. She underwent lumpectomy with adjuvant radiation. She elected not to go on hormonal therapy after discussion with her oncologist. She felt that the benefit she would gain did not outweigh the potential side effects. Assessment & Plan (02/29/2024 6:51 PM EDT): Patient will continue follow-up care in the breast center at [facility]. Assessment & Plan (03/21/2020 7:32 AM EDT): Patient will continue follow-up care in the breast center at [facility]. Assessment & Plan (09/06/2019 11:08 PM EST): She will continue follow-up with the breast center. Assessment & Plan (05/17/2019 11:38 AM EST): Patient is completing her radiation next week. Her oncologist is planning to start her on either anastrozole or tamoxifen. She is concerned about her bone health. Irish is currently followed by endocrinology for osteoporosis. I will communicate with her jet pilot to help decide which medication would be preferred Assessment & Plan (04/26/2019 8:15 AM EDT): She is status post lumpectomy. She is currently receiving Assessment & Plan (02/13/2019 4:05 PM EDT): Patient is scheduled for an evaluation in the breast clinic on 02/15/2019. She will be seeing Dr. Terrell Canales at [facility] Thyroid nodule 12/28/2018 Anxiety 08/24/2018 Overview (02/17/2023): Patient has history of chronic anxiety and mild depression as noted she was previously on fluoxetine but this was discontinued recently as she had had significant improvements in her moods with the bupropion. She now notes some irritability that is quite bothersome. Assessment & Plan (02/17/2023 1:26 PM EDT): It is possible that some of her irritability and anxiety may be related to discontinuing the fluoxetine. She is going to restart her medication at 40 mg daily. As noted in discussion of depression she is going to try bupropion SR 100 mg p.o. daily in a few weeks after she has restarted her fluoxetine. Assessment & Plan (12/07/2018 1:10 PM EDT): Patient was advised to increase her fluoxetine to 40 mg daily. She will continue the lorazepam on an as-needed basis. If the increased dose of fluoxetine is not helpful she will notify me. We could potentially increase this up to 60 mg if tolerated. The hope would be that as her stress level decreases during the summer her symptoms will be less bothersome. Osteoporosis 08/21/2018 Assessment & Plan (03/09/2025 4:02 PM EDT): She is followed in the endocrinology clinic. She is currently being treated with Tymlos. She will continue follow-up with endocrinology Assessment & Plan (08/22/2018 2:27 PM EST): 08/22/2018 Patient presented with hip fracture. She is on intermittent courses of prednisone which can worsen osteoporosis - calcium 500mg daily - vit D 2000 daily - patient should have follow up for her osteoporosis Routine general medical exam ination at a health care facility 02/13/2018 Overview (02/13/2019): Patient presents for annual physical exam. Assessment & Plan (02/29/2024 6:51 PM EDT): She is up-to-date with colonoscopy and mammogram. She is up-to-date with immunizations. Screening blood work was ordered Assessment & Plan (12/29/2022 11:20 AM EDT): She is up-to-date with colonoscopy. She is up-to-date with immunizations. Cervical cancer screening was done with her still photographer just 5 years ago and was normal with negative HPV. She is low risk for HPV infection and reports no potential exposure. She can likely wait an additional year to have her cervical cancer screening. Assessment & Plan (03/23/2021 10:37 AM EDT): She is up-to-date with mammogram and colonoscopy. She received her Covid vaccine. She will get her flu shot from her pharmacy. She received Pneumovax in 2011. Assessment & Plan (03/21/2020 7:32 AM EDT): Screening blood work was ordered today. She will receive her flu vaccine. She is up-to-date with mammogram and colon cancer screening. She will follow-up for yearly exams. Assessment & Plan (02/13/2019 4:03 PM EDT): Colonoscopy is due and is scheduled for 04/28. She is up-to-date with immunizations.Blood work done today including lipid panel, AST and ALT. She is up-to-date with rest of her blood work. SOB (shortness of breath) 10/11/2014 Left low back pain 06/24/2014 Overview (10/31/2020): She presents with left lower back pain with radiation into the left hip. This is status post a near fall that occurred about a month and a half ago. Assessment & Plan (10/31/2020 3:35 PM EDT): Lumbar spine films were ordered in addition to the left hip films. She may need orthopedic referral for possible further imaging depending on results of the x- rays. Type 2 diabetes mellitus wit h proliferative retinopathy of both eyes, without long-term current use of insulin 10/10/2013 Overview (02/29/2024): Patient has been followed in the diabetes clinic for her type 2 diabetes which was insulin-dependent. She was taken off the insulin a few years ago. She has had some weight loss. She has been on metformin 1000 mg p.o. daily and is also on Jardiance.. She does have microalbuminuria and does have stage II chronic kidney disease. She also has history of diastolic heart failure. Assessment & Plan (03/09/2025 4:00 PM EDT): Continue metformin and Jardiance. Recent hemoglobin A1c was at goal. She does have follow-up with diabetes clinic Assessment & Plan (07/12/2024 12:54 PM EST): Continue metformin and Jardiance. Recent hemoglobin A1c was at goal. She does have follow-up with diabetes clinic Assessment & Plan (02/29/2024 6:50 PM EDT): Will continue current medication. She will continue regular ophthalmology exams and will monitor microalbumin, renal function and hemoglobin A1c Assessment & Plan (02/04/2023 7:08 AM EDT): Patient was started on empagliflozin 10 mg daily. She is tolerating it well. Recent hemoglobin A was 6.0. She would like to decrease her metformin dose which does cause some GI side effects for her. She will decrease her metformin to once daily dosing. We will plan on repeat checking her hemoglobin A1c in 3 months. She will continue current dose of Jardiance Assessment & Plan (12/29/2022 11:18 AM EDT): Given her stage II chronic kidney disease I am going to decrease her metformin dose to 500 mg p.o. twice daily. I am also going to start her on Jardiance 10 mg daily. Given her heart failure and chronic kidney disease she may benefit from an SGLT2 inhibitor. We discussed the possible side effects. She will have a follow-up hemoglobin A1c before she leaves on her trip. Also recheck basic metabolic panel. She is aware that the Jardiance may increase risk of UTIs as well as yeast infections and will follow-up with any symptoms. She will also be following up in the diabetes clinic. Assessment & Plan (04/28/2022 3:56 PM EDT): She will continue current regimen, diabetes is currently well controlled. She is up-to-date with eye exam. Assessment & Plan (12/14/2021 8:16 AM EDT): Hemoglobin A1c will be checked. She will continue follow-up in the diabetes clinic. Assessment & Plan (03/23/2021 10:38 AM EDT): Hemoglobin A1c will be checked. She will continue on current dose of Metformin. She has had great success with weight loss. She is up-to-date with her ophthalmology exam. Lipid panel will be followed as well and she is on atorvastatin. Assessment & Plan (09/11/2020 7:51 AM EST): She will continue the Metformin. She will follow-up in the diabetes clinic. She is up-to-date with the rest of her lab work and does have yearly ophthalmologic exams. Assessment & Plan (03/21/2020 7:33 AM EDT): Hemoglobin A1c, lipid panel and microalbumin will be checked today. Assessment & Plan (02/13/2019 4:02 PM EDT): She will continue the metformin and will follow-up in the diabetes clinic. Her hemoglobin A1c is being monitored every 3 to 4 months. Assessment & Plan (08/22/2018 2:30 PM EST): Patient with known poorly controlled T2DM. HbA1C from 02/2018 was >14, and most recently from 07/2018 at 10%. Home regimen [employer] includes only metformin. FSBS signficantly elevated this admit, likely worsened by acute stress from fracture and prednisone. She was started on lantus and switched to NPH with improved control, though still elevated FSBS. - d/c NPH - lantus 30u qhs - Humalog 16u tidac - medium dose ISS with meals only - FSBS qac and qhs - insulin teaching - diabetes team consulted, apprec recs - will follow up with diabetes after discharge Assessment & Plan (07/14/2018 5:27 PM EST): Hemoglobin A1c will be rechecked today. Patient thinks she could be more compliant if she is able to take the thousand milligrams as a single dose. She will start doing that. I suspect she will need additional treatment and may benefit from addition of sulfonylurea. I may also refer her back to the diabetes clinic. She may benefit from diabetes education. She has been intermittently noncompliant with her treatment. Atrial fibrillation 10/10/2013 Overview (03/09/2025): She does have history of atrial fibrillation. She has no current symptoms. She is in normal sinus rhythm on exam today. Assessment & Plan (03/09/2025 4:01 PM EDT): She is on chronic anticoagulation for previous history of DVT and PE due to antiphospholipid antibody syndrome. She will continue on warfarin. Assessment & Plan (08/22/2018 2:23 PM EST): Patient with known pAfib. [id number] of 4 for CHF, HTN, T2DM, and female gender. Home regimen [employer] includes toprol 100mg daily and coumadin 5mg daily. Patient has remained rate controlled and INR is therapeutic - c/w toprol XL 100 mg po daily - AC as per antiphospholipid section. Depression 12/11/2008 Overview (02/29/2024): She has history of depression currently treated with fluoxetine Assessment & Plan (02/29/2024 6:53 PM EDT): She will continue current regimen Assessment & Plan (02/17/2023 1:24 PM EDT): Patient is going to discontinue the bupropion XL 150 mg daily. We talked about the possibility of starting bupropion SR 100 mg once daily to help with daytime focus and possibly help with her dysthymia she would like to try that but is going to stay off the bupropion for few weeks and then start the bupropion SR when her irritability has improved. She will let me know how she is doing through the patient portal or by calling the office. Assessment & Plan (02/04/2023 7:07 AM EDT): Patient will continue the fluoxetine and bupropion. Assessment & Plan (03/23/2021 10:37 AM EDT): She is doing well on current dose of fluoxetine. Assessment & Plan (02/13/2019 4:04 PM EDT): She will continue on current medication Assessment & Plan (02/21/2018 7:48 AM EDT): She is doing well on current dose of Prozac and will continue medication. LUIS ANTONIO (obstructive sleep apnea) 12/11/2008 Overview (06/29/2019): She has a history of sleep apnea but has not been using her CPAP for several years. 03/10/[address] [facility] mild, AHI 6, 85% Assessment & Plan (03/09/2025 4:00 PM EDT): She will continue CPAP and has been using it regularly. Assessment & Plan (12/29/2022 11:20 AM EDT): She will continue CPAP and has been using it regularly. Assessment & Plan (03/21/2020 7:33 AM EDT): She will continue current therapy Assessment & Plan (06/29/2019 6:23 PM EST): H/o at least mild LUIS ANTONIO diagnosed in 2014, needs supplies. Her CPAP machine works fine. I reviewed the sleep study results with her, reviewed pathophysiology of LUIS ANTONIO and treatment options. At this time she just needs updated supplies and would like to try other styles of masks. Sent rx and required documents to [facility]. Reviewed operation /maintenance of her equipment. Assessment & Plan (02/13/2019 4:04 PM EDT): I have referred her back to the sleep clinic to restart her CPAP. I suggested that she restarted at her previous settings that she still has a machine at home. Visit with the sleep clinic is not scheduled until June. She will call to see if there are any earlier appointments. I do feel that her chronic fatigue may be related to the ongoing obstructive sleep apnea. Assessment & Plan (10/23/2018 6:58 PM EDT): Referral will be made to the sleep clinic to discuss reinstituting the CPAP. Assessment & Plan (08/21/2018 3:53 PM EST): Patient with LUIS ANTONIO not on CPAP. She reported that she has not used her machine in a year. - cont outpatient follow up. APS (antiphospholipid syndrome) 12/11/2008 Overview (02/21/2018): She has history of DVT and PE diagnosed over 20 years ago. She was diagnosed with antiphospholipid antibody syndrome. She has remained on chronic anticoagulation since that time. Assessment & Plan (12/10/2024 7:53 PM EDT): -Hx of PE/DVT in 1994 and 1996, on life-long coumadin. Unknown aPL at the time. ?TIA in early -More recently her aPLs have been negative (2022). -Had IVC filter place and then removed while she underwent extensive thoracic spine surgery for fractures. On Tymlos now/follows with Endocrinology for osteoporosis. -Denies rashes/joint pain. Normal PLT count (only a few occasions of lower) -Plans to see Pulmonology due to breathing issues. Assessment & Plan (02/29/2024 6:54 PM EDT): She will remain on long-term anticoagulation. Assessment & Plan (02/20/2024 3:55 PM EDT): -History of PE in 1994 then DVT in 1996. TIA in early 90s. 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 -On life-long coumadin. -Since establishing care here, her NARA aPL are negative. -No thrombocytopenia, no rashes or skin ulcers relevant to APS. -Will continue to monitor. Assessment & Plan (12/20/2022 5:05 PM EDT): -History of PE in 1994 then DVT in 1996. TIA in early 90s. 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 -On life-long coumadin. -Since establishing care here, her NARA aPL are negative. -No thrombocytopenia, no rashes or skin ulcers relevant to APS. -Will continue to monitor. Assessment & Plan (12/18/2021 4:27 PM EDT): -Continue with coumadin (life-long) Assessment & Plan (10/09/2020 11:06 AM EDT): -Long-term management with coumadin. -Will check aPLs today (except for LA, as it would be unreliable on coumadin). -Quiescent disease -Discussed COVID-19 vaccine. No data on patients with autoimmune diseases/on immunomodulatory meds, however, vaccine is not live, therefore very unlikely to transmit disease. Overall on clinical trials in general population it has been well tolerated. Despite lack of data on the specific patient population with autoimmune diseases, likely benefit of vaccination/prevention of COVID-19 outweighs risk. Assessment & Plan (03/21/2020 7:33 AM EDT): She will remain on long-term anticoagulation. Assessment & Plan (02/13/2019 4:06 PM EDT): She will continue on warfarin. Assessment & Plan (08/22/2018 2:31 PM EST): Patient with known antiphospholipid syndrome c/b prior DVT/PE. She is chronically on anticoagulation with coumadin 5mg daily. Presented with hip fx for which was reversed with vit K. Bridged with lovenox following surgery and now therapeutic INR. - coumadin 4mg on 08/22 - Daily INR and coumadin dosing Assessment & Plan (02/21/2018 7:48 AM EDT): She will continue on Coumadin and is followed in the anticoagulant clinic Hypertension 12/11/2008 Overview (02/29/2024): She has history of hypertension currently treated with losartan 100 mg daily, spironolactone, hydrochlorothiazide 25 mg daily and metoprolol 100 mg daily. Assessment & Plan (03/09/2025 4:01 PM EDT): She will continue on current regimen. Assessment & Plan (02/29/2024 6:52 PM EDT): She will continue on current regimen. Assessment & Plan (12/29/2022 11:20 AM EDT): She will continue on current regimen. Her medical office supervisor was considering addition of spironolactone however she appears to have well-controlled blood pressure and has not had any symptoms of CHF. Assessment & Plan (04/28/2022 3:56 PM EDT): She will continue current regimen. Basic metabolic panel will be monitored. Assessment & Plan (12/14/2021 8:15 AM EDT): Blood pressure is currently well controlled. Basic metabolic panel will be followed. Assessment & Plan (03/23/2021 10:39 AM EDT): She will continue current medication. Her blood pressure has generally been well controlled. Assessment & Plan (09/11/2020 7:52 AM EST): Blood pressures well controlled on this regimen. Electrolytes and creatinine will be checked with next blood draw. Assessment & Plan (03/21/2020 7:34 AM EDT): Blood pressures well controlled she will continue current therapy. Assessment & Plan (09/06/2019 11:09 PM EST): Blood pressure is now well controlled on current medication. Assessment & Plan (08/09/2019 12:09 PM EST): Hydrochlorothiazide 25 mg daily was re-added to her regimen. She will follow-up in 4 weeks for blood pressure check in the office. She will also check her blood pressure at home and let me know if it is running high. Assessment & Plan (04/26/2019 8:14 AM EDT): For now she will continue on her current regimen of losartan and metoprolol. She will follow-up for repeat blood pressure check. She will continue to check her blood pressure at home. Assessment & Plan (02/13/2019 4:05 PM EDT): Blood pressures currently well controlled. She will continue current medication. Assessment & Plan (12/28/2018 12:20 PM EDT): Blood pressure is not well controlled. Dose will be increased to losartan 100 mg daily. Assessment & Plan (08/22/2018 2:23 PM EST): Chronic issue on home losartan-HCTZ 100-25 mg po daily and toprol XL 100mg daily. Home losartan-HCTZ has been held and BP has remained stable - cont holding losartan-HCTZ - Continue Toprol 100 mg daily Assessment & Plan (07/14/2018 5:28 PM EST): Blood pressure is mildly elevated today. She will follow-up for another blood pressure check in 3 months. She will continue current medication. Assessment & Plan (02/21/2018 7:46 AM EDT): Electrolytes and creatinine will be monitored. Hyperlipidemia 03/06/2007 Overview (03/23/2021): Patient has history of hyperlipidemia currently treated with atorvastatin Assessment & Plan (03/09/2025 4:02 PM EDT): She will continue on atorvastatin. Most recent LDL was 50 well within goal range Assessment & Plan (02/29/2024 6:52 PM EDT): She will continue on atorvastatin. Most recent LDL was 50 well within goal range Assessment & Plan (12/29/2022 11:21 AM EDT): She will continue on atorvastatin. Most recent LDL was 50 well within goal range Assessment & Plan (03/23/2021 10:38 AM EDT): She will continue on atorvastatin. Lipid panel will be monitored. Assessment & Plan (09/11/2020 7:51 AM EST): She will continue rosuvastatin. I did order her lipid panel which she will do before her next diabetes clinic appointment. Assessment & Plan (03/21/2020 7:33 AM EDT): Lipid panel was ordered. Assessment & Plan (02/13/2019 4:05 PM EDT): Fasting lipid profile was checked today. Assessment & Plan (08/22/2018 12:17 PM EST): C/w atorvastatin 40 mg po qhs. Moderate persistent asthma without 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 03/06/2007 Overview (03/09/2025): She has history of asthma currently treated with Symbicort, Spiriva and as needed Xopenex. She is not experiencing any current active symptoms Assessment & Plan (03/09/2025 4:03 PM EDT): She will continue her chronic inhaler therapy. Assessment & Plan (02/29/2024 6:54 PM EDT): She will continue on her current regimen which has worked well. Assessment & Plan (12/29/2022 11:22 AM EDT): She will continue on her current regimen which has worked well. Assessment & Plan (04/28/2022 3:56 PM EDT): Symptoms are currently well controlled. She will continue current regimen. Assessment & Plan (12/14/2021 8:15 AM EDT): She will continue follow-up with pulmonary. Assessment & Plan (03/23/2021 10:38 AM EDT): She is doing well with her asthma control. She has also lost a considerable amount of weight which has helped her exercise tolerance. She is exercising more regularly and has had no recent exacerbations Assessment & Plan (03/21/2020 7:33 AM EDT): She will continue current therapy symptoms are currently well controlled. Assessment & Plan (10/24/2019 10:45 AM EDT): She will continue current regimen. Assessment & Plan (04/26/2019 8:14 AM EDT): Patient was given a nebulizer treatment in the office. She did report improvement in her symptoms. She will continue on current medication. Assessment & Plan (02/13/2019 4:06 PM EDT): She is currently asymptomatic and is doing well on current regimen Assessment & Plan (10/16/2018 11:19 AM EDT): She has current cough but no clear asthma exacerbation at this time. She will call back if her symptoms worsen and I would start steroid taper for possible exacerbation. Assessment & Plan (08/22/2018 2:20 PM EST): Patient with asthma, though restrictive pattern on PFT's. Multiple triggers including, most recently, cowaorkers perfume. She hs required multiple courses of prednisone. Has recently been started on a slow taper of 10mg when she feels she is ready; presented on dose of 50mg daily. Prednisone held initially, and to mitigate adrenal suppression, initiated equivalent hydrocortisone 50 mg IV q6hrs. Has since been tapered back to oral prednisone. No wheezing or shortness of breath to suggest an acute exacerbation and steroids will worsen poorly controlled hyperglycemia. - cont pred 40mg daily - patient agreeable to faster taper, will taper by 10mg q3days - c/w Spiriva and Advair - Albuterol PRN - outpatient pulm follow up Assessment & Plan (02/21/2018 7:45 AM EDT): Symptoms are well controlled on current regimen. History of pulmonary embolus (PE) 11/08/1994 Overview (12/29/2022): She has a past history of DVT and pulmonary embolism. At that time work-up was consistent with antiphospholipid antibody syndrome and she has been on long-term anticoagulation. Assessment & Plan (12/29/2022 11:22 AM EDT): She will continue on warfarin. DOACs have not been recommended for treatment of antiphospholipid antibody syndrome. She has arranged for blood work to be done while she is away [place]. Current Treatment and Therapy Plans No current plan information found. Past Treatment and Therapy Plans Lifetime Dose Tracking * Chemical Lifetime Dose Automatic Entry Manual Entr y Fluoro Time 15.886 minutes 15.886 minutes 0 minutes TotalDLP 4,228 mGy 4,228 mGy 0 mGy [id number] 69 mSv 69 mSv 0 mSv CTDIvol Max 144.5 mGy 144.5 mGy 0 mGy CTDIvol Min 136.3 mGy 136.3 mGy 0 mGy Radiation - mGy 415.981 mGy 415.981 mGy 0 mGy Resolved Problems Problem Noted Date Diagnosed Date Resolved Date Heel pain, bilateral 12/20/2022 023 Chronic diarrhea 11/04/2022 12/29/2022 Overview (11/04/2022): Patient has had 1 year of diarrhea symptoms. She has had evaluation for this which included an elevated stool calprotectin. She is scheduled for a colonoscopy next month. Assessment & Plan (11/04/2022 6:04 PM EDT): Certainly given her presentation and recent enteritis the possibility of inflammatory bowel disease specifically Crohn's needs to be ruled out. We did have a discussion of this. Further evaluation and management based on results of colonoscopy. Abnormal PFTs 03/22/2022 02/29/2024 Elevated parathyroid hormone 02/09/2022 02/29/2024 Overweight (BMI 25.0-29.9) 12/18/2021 0 01/22/2025 Exertional dyspnea 10/14/2021 3 Overview (10/14/2021): Patient with history of adult onset diabetes mellitus, hypertension and hyperlipidemia presents with exertional dyspnea. She does have history also significant for DVT and PE however is is on chronic anticoagulation. She has normal trending pulse ox and D-dimer was normal. On physical exam today cardiac exam and lung exam were unremarkable. Assessment & Plan (10/14/2021 8:40 AM EDT): I think that a pulmonary embolism is unlikely given the exam findings, negative D-dimer and the fact that she is on chronic anticoagulation which she has been compliant with. Certainly cardiac ischemia needs to be ruled out given her multiple risk factors and symptoms of left-sided chest discomfort and dyspnea on exertion. The chest discomfort is somewhat atypical. She will be scheduled for a nuclear stress test. She does feel that she can walk on the treadmill. Referral was placed for this. She is aware that should she develop increasing symptoms she should return to the emergency room. She will continue her current medications. Left hip pain 09/23/2020 12/29/2022 Overview (10/31/2020): Patient presents with complaint of approximately 6 weeks of left buttock/hip pain with some radiation into her thigh. This occurred after a twisting near fall that occurred about a month and a half ago. Her symptoms have recently worsened. Assessment & Plan (10/31/2020 3:35 PM EDT): X-rays of the left hip were ordered. She may need orthopedic referral. It is unclear whether this represents a bony injury or possible soft tissue/labral injury. Assessment & Plan (09/23/2020 4:02 PM EDT): I suspect patient had soft tissue injury and possible sciatica symptoms. She will continue Tylenol if needed. I also offered to send her some exercises to do for piriformis syndrome since she has had intermittent problems with this in the past. She will follow-up if symptoms worsen Mass of chest wall 10/24/2019 Overview (01/10/2020): Patient presents with concern regarding a mass at the base of her sternum. She does have a firm palpable mass at the base of the sternum which she has not noted previously. There is no tenderness or pain reported except for minimal tenderness with firm palpation. X-ray of the sternum was unremarkable. CT scan was also obtained which revealed a xiphoid process that was angled anteriorly but was otherwise normal. Assessment & Plan (01/10/2020 6:37 PM EDT): I reviewed all the findings with the patient. I told her that it was likely that she feels this prominence now due to some changes in posture. She has had some kyphosis. She likely has some loss of disc height and some kyphosis was noted on her CT scan. I reassured her that with the normal CT scan she should feel reassured that there is no bony mass or abnormality. It does appear that she has a xiphoid process that angles anteriorly. She was reassured by this. Assessment & Plan (10/24/2019 10:47 AM EDT): Certainly by exam this area is consistent with the xiphoid process. It is possible that there is some inflammation which is caused the enlargement that is felt on exam and that the patient has noted. She does not appear to have any pain at this time. I will plan to speak with the radiologist regarding the imaging to see if they do see any evidence of swelling or soft tissue mass in that area, although the x-ray report was negative. I am not sure further imaging is needed but she does remain concerned about the enlargement. Right hip pain 09/06/2019 12/29/2022 Overview (10/24/2019): Patient had presented with right hip pain. She reports that this is now 95% improved. She did have an x-ray done which revealed minimal degenerative joint disease and vague lucencies in the area of the greater trochanter which were felt to be likely projectional however early metastasis could not be ruled out. It was suggested that bone scan be done depending on clinical suspicion. Assessment & Plan (10/24/2019 10:44 AM EDT): I had a discussion about the results with the patient. I feel that given that her pain is nearly completely resolved the likelihood of this being metastatic disease is exceedingly low. I do not feel the need to do the bone scan especially in view of the fact that the radiologist seem to think this was not a significant finding. Patient agrees with that. Certainly if her pain were to increase we could consider further imaging. Assessment & Plan (09/06/2019 11:07 PM EST): X-ray of hip and pelvis will be ordered. Verruca vulgaris 08/09/2019 03/23/2021 Overview (08/09/2019): Patient has been treated by dermatology for verruca vulgaris on her hand. The lesions persist. Assessment & Plan (08/09/2019 12:11 PM EST): 2 lesions were treated with liquid nitrogen today. She will also follow-up with her electromatic typist as scheduled for September. Acute otitis media 05/07/2019 9 Overview (05/17/2019): Patient is being treated with Augmentin for bilateral acute otitis media. She reports ongoing blockage in her ear but resolution of her pain. She is afebrile. On exam today there is no evidence of residual infection. Assessment & Plan (05/17/2019 11:37 AM EST): She will complete the Augmentin course. I advised adding Saadia to her regimen to better treat her allergy symptoms. She will continue on the fluticasone and the montelukast. She may use Sudafed and low-dose to help with the congestion. If she has persistent concerns she will follow-up Assessment & Plan (05/07/2019 4:17 PM EDT): I am going to switch her to Augmentin which is preferred treatment for acute otitis media especially given that she has bilateral involvement. She may use Tylenol or ibuprofen if needed for ear pain. She will follow-up if symptoms do not resolve. Trigger ring finger of right hand 12/28/2018 12/29/2022 Overview (12/28/2018): Patient complains of trigger finger of her fourth right digit. She reports locking however describes it primarily at the DIP joint. Assessment & Plan (12/28/2018 12:21 PM EDT): She will be referred to the hand clinic for evaluation. 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 Urinary frequency 10/23/2018 02/29/2024 Assessment & Plan (11/04/2022 6:04 PM EDT): We will order a urinalysis with reflex to culture to rule out urinary tract infection. Assessment & Plan (10/23/2018 6:59 PM EDT): Urinalysis was sent for micro and reflex to culture Chronic fatigue 09/15/2018 03/23/2021 Overview (09/15/2018): Patient notes significant fatigue since her hospitalization. She does not have many other associated symptoms. Her asthma is well controlled at this time she denies any upper respiratory symptoms or cough. She has not had any urinary symptoms other than dark urine. She is tachycardic and is in sinus tachycardia by her EKG. She did have significant anemia while in hospital. Assessment & Plan (10/23/2018 6:58 PM EDT): Urinalysis will be checked to rule out UTI. CBC will be rechecked as she did have significant anemia during the hospitalization. I do suspect that the anemia is multifactorial. She is likely still recovering from her hip fracture and surgery. In addition she has not been using her CPAP which could be a contributing factor. She will be referred to the sleep clinic to reestablish care. Assessment & Plan (09/15/2018 12:44 PM EST): Lab work will be done today including comprehensive metabolic panel and CBC. I suspect she may still be anemic and may be mildly dehydrated. Of asked her to increase her hydration and start on the iron supplement that was prescribed in the hospital. I will call her with the results of her blood work. I will follow-up with her again in 4 weeks or sooner if she has any concerns. Acute blood loss as cause of postoperative anemia 08/23/2018 06/29/2019 Closed displaced intertrocha nteric fracture of left femur 08/17/2018 12/29/2022 Overview (09/15/2018): Patient is status post a fall on 08/17/18 which resulted in a left intertrochanteric fracture which was repaired the same day. She has had no significant postop 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s. She is now back at home and ambulate in with a walker and has started back at work. She is managing her nighttime pain with oxycodone 5 mg. Assessment & Plan (09/15/2018 12:42 PM EST): Patient will continue follow-up with orthopedics. She will continue to use the walker as needed. She will try to taper slowly off of the oxycodone and may use Tylenol instead for pain as needed. She will follow-up with orthopedics if she has any concerns or problems arise. Assessment & Plan (08/22/2018 2:26 PM EST): Patient presented with mechanical fall. She was found to have a left intertrochanteric fx. No symptoms of angina. PTHAL 2007: negative, 7 METS. TTE 2015 with LVEF 60-65%, no WMA, mild MR. Hernandez Risk: 0.53%. RCRI: 1 point, 6.0% risk of major cardiac event. She has been admitted and is s/p OR on 08/18. Recovering well - care per ortho team Chronic midline thoracic back pain 07/14/2018 02/29/2024 Overview (07/14/2018): Patient complains of some mid back pain that is most notable when she first gets up in the morning. Assessment & Plan (02/20/2024 3:54 PM EDT): -Worse after a fall on her back in November 2023. -Per lumbar spine xrays after the fall, she did not sustain a new fracture. Had previously determined compression deformity of the superior endplate of T11 and T12 vertebral bodies . -Plans to use baclofen. Recommended to take at bedtime. -[facility] Assessment & Plan (07/14/2018 5:29 PM EST): She was given a muscle relaxer to start taking at bedtime. She may also start some stretching exercises. If her symptoms do not improve she will follow-up. Postconcussive syndrome 02/21/2018 02/0 01/2019 Overview (02/21/2018): Patient had a fall on 12/21/17 where she hit her nose and head on steps. She was evaluated in the emergency room and head CT was done to rule out a bleed to her to her anticoagulation. Her symptoms have been included headache, visual blurring, dizziness and difficulty focusing. She was improving however more recently noted worsening of her symptoms in the setting of going back to work and doing more activity. Assessment & Plan (02/21/2018 4:58 PM EDT): Patient does report that she is feeling better today it does appear that her symptoms have been waxing and waning. I think this is a normal course for postconcussive syndrome and reassured her that on days that she is more active she may have worsening symptoms. I do not feel that at this point she has any symptoms that are suggestive of a bleed. Certainly with her being on anticoagulation that would be a concern. In addition it has been 2 months since her fall and I think it would be less likely to be delayed. This certainly can occur in elderly patients but I think it would be less likely to be the case for her at this time. She was encouraged to follow-up with me if she has any concerns at all otherwise she will continue current treatment. She had been given a note to slowly increase her work hours as tolerated. Assessment & Plan (02/21/2018 7:45 AM EDT): Irish reports slow improvement in her symptoms however she does continue to feel symptomatic. She would like to return to work and I wrote a letter for her asking for her to start with 2-4 hours a day with slow increase over 2-4 weeks as tolerated. I have advised her to follow-up with me if she notes any worsening symptoms. I did advise her that it is difficult to predict how long it will take for concussion symptoms to resolve. Is very variable and it may be several weeks to months before she is at her baseline. My hope is that she will get back to her previous baseline and I am encouraged by the fact that she has improved. Dysuria 02/13/2018 08/17/2018 Gross hematuria 10/29/2016 03/23/2021 Cellulitis 10/08/2016 06/29/2019 Postmenopausal bleeding 09/09/201603/11 Cellulitis of foot 05/14/2016 9 Restrictive lung disease 05/13/201605/2020 Asthma exacerbation 04/08/2016 08/17/19 19 Overview (08/12/2017): Patient presents with several weeks of upper respiratory symptoms, cough and mild shortness of breath. She was treated at an urgent care clinic for upper respiratory infection as well as asthma exacerbation. She was treated with azithromycin and short low-dose prednisone course. She continues to have ongoing symptoms although they are not severe. Exam is remarkable for some upper airway wheezing Assessment & Plan (08/12/2017 7:51 AM EST): Symptoms are most consistent with an asthma exacerbation. I am going to start her on a higher dose and slower prednisone taper. She will continue her current inhalers. I do not feel that additional antibiotics are needed. If her symptoms worsen or do not improve chest x-ray may be ordered. Abnormal PFTs 03/31/2016 03/23/2021 Right knee pain 02/04/2016 08/17/2018 Overview (03/31/2017): ? pes anserine bursitis LPRD (laryngopharyngeal reflux disease) 10/31/2015 08/17/2018 Varicose veins 01/17/2015 02/29/2024 Dehydration symptoms 11/15/2014 019 Chronic systolic heart failure 01/18/2014 03/21/2020 Assessment & Plan (08/22/2018 2:22 PM EST): Patient with prior systolic CHF, though most recent TTE from 2015 showed LVEF 60-65%, no WMA, mild MR. She is not on diuretics at home. She is on losartan-HCTZ 100-25 mg po daily likely for BP control. She has appeared euvolemic this admission - Holding hyzaar maksim-operatively; may resume once blood pressures consistently above 135/90 - c/w Toprol XL 100 mg po daily - Currently euvolemic. Right-sided chest wall pain 12/12/2013 12/29/2022 Overview (06/11/2020): Patient reports some right-sided chest wall pain. She has had a fall in the past but the pain has been intermittent since then. She does have some tenderness to palpation but not point tenderness, she has no pulmonary symptoms Assessment & Plan (06/11/2020 1:55 PM EST): Suspect musculoskeletal cause, unlikely to be a bony injury or bony pathology however she does have history of breast cancer. X-rays of right sided ribs will be ordered to evaluate for any abnormality. She will continue Tylenol for discomfort and if symptoms do not improve she will follow-up. Assessment & Plan (09/06/2019 11:07 PM EST): X-ray of sternum and right anterior ribs will be ordered to rule out bony lesion. Fainting 10/10/2013 08/17/2018 Sprain of MCL joint of knee 10/10/2013 08/17/2018 Obesity 10/10/2013 08/17/2018 Joint pain, knee 10/09/2013 08/17/2018 Anxiety disorder 07/23/2013 08/17/2018 Urinary incontinence 01/25/2011 019 Urinary tract infection 01/25/201101/2019 Headache 12/11/2008 08/17/2018 Deep vein thrombosis of lower extremity 12/11/2008 03/23/2021 Chronic interstitial cystitis 12/11/2008 03/23/2021 Hypercholesterolemia 12/11/2008 018 Venous thrombosis 12/11/2008 08/17/2018 Insomnia 03/06/2007 08/17/2018 Asthma 08/17/2018 Overview (07/14/2018): Patient has history of asthma currently well controlled with her inhaler regimen of Symbicort and as needed pro-air Assessment & Plan (07/14/2018 5:28 PM EST): Refills of her inhalers were given today as requested. Femur fracture 03/23/2021
--- OUTSIDE RECORDS SUMMARY | 2025-03-12 14:58 | XMS_ITS | Encounter Summary ---
Author Organization [facility] Address [address] [place] [address] Care Team Providers Care Motor Driver Name Role Phone Karen Reich MD Primary Care Provider [phone] Encounter Details Date Type Department Care Team (Late st Contact Info) Description 10/19/2021 Orders Only [facility] Nuclear Medicine [address] [place] [address] Piotr Stapleton MD [address] [place], [place] [id number] Social History Tobacco Use Types Packs/Day Years Used Date Smoking Tobacco: Never Smokeless Tobacco: Never Comments:: Alcohol Use Standard Drinks/Week Comments Yes 0 (1 standard drink = 0.6 oz pur e alcohol) rare Transportation Answer Date Recorded Please francesca the areas for wh ich the patient would like information or assistance: None Apply 03/19/2021 Lack of Transportation (Medical) Not on file 03/19/2021 Housing Stability Answer Date Recorded Please francesca the areas for wh ich the patient would like information or assistance: None Apply 03/19/2021 Unable to Pay for Housing in the Last Year Not o n file 03/19/2021 Last EPDS Total Score Not on file 03/19/2021 Unstable Housing in the Last Year Not on file 03/19/2021 Comments No Sex and Gender Information Value [...] Info) Description 03/13/2025 2:00 PM EDT Telehealth [facility]tico[facility] [address] [place] [address] Automatic Brine Mixer Operator: Al Zhou, JOAN [address] [place] [address] Arrived 03/20/2025 1:30 PM EDT Follow-Up [facility] [address] [place] [address] Shawna Camara MD [address] [place] [address] 03/25/2025 1:00 PM EDT Evaluation [facility] at [address] [place] [address] Automatic Brine Mixer Operator: Keke Nath PT 03/28/2025 1:15 PM EDT Follow-Up [facility] at [address] [phone] Reina Key, OD [address] [place] [address] 03/28/2025 4:20 PM EDT Follow-Up [facility] ACC Building Podiatry [address] [place] [address] Automatic Brine Mixer Operator: Mel Whitman NP [address] [place] [address] 05/07/2025 3:40 PM EDT Office Visit [facility] Plastic Cosmetic Surgery [address] [place] [address] Automatic Brine Mixer Operator: Segun Girard MD [address] [place] [address] 12/18/2025 1:00 PM EDT Office Visit [facility] nurse research [address] [place] [address] Libia Bhat MD [address] [place] [address] 12/23/2025 2:40 PM EDT Follow-Up [facility] Endocrinology [facility] [address] [place] [address] Automatic Brine Mixer Operator: Bran Hobbs MD [address] [place] [address] 12/23/2025 3:45 PM EDT Follow-Up [facility] B [address] [place] [address] Donnie Brasher MD [address] [place] [address] 12/24/2025 10:30 AM EDT Office Visit [facility] Diabetes [facility] [address] [place] [address] Automatic Brine Mixer Operator: Alfredo Rendon MD [address] [place] [address] 12/24/2025 1:00 PM EDT Follow-Up [facility] Rheumatology Clinic [address] [place] [address] Automatic Brine Mixer Operator: Ayse Resendiz MD [address] [place] [address] 12/27/2025 2:40 PM EDT Office Visit [facility] Allergy Center [address] [place] [address] Automatic Brine Mixer Operator: Martín Sanchez MD [address] [place] [address] 01/21/2026 3:30 PM EDT Follow-Up [facility] Building 4th floor Cardiology Medicine [address] [place] [address] Automatic Brine Mixer Operator: Scott Hutson MD [address] [place] [address] documented as of this encounter Visit Diagnoses Not on filedocumented in this encounter Additional Health Concerns Infection Onset Date Last Indicated Resolved Time R/O C.diff 07/01/2022 07/01/2022 07/02/2022 2:49 PM EST R/O Respiratory Virus Infection 09/20/2022 09/20/2022 9:13 PM EDT R/O Influenza 09/20/2022 09/20/2022 09/20/2022 9:1 3 PM EDT COVID-19 - Suspected infection 09/20/2022 09/20/2022 09/20/2022 9:13 PM EDT COVID-19 - Suspected infection 10/29/2022 10/29/2022 10/29/2022 10:25 PM EDT documented as of this encounter Care Teams Motor Driver Relationship Specialty Start Date End Date Karen Reich MD [address] [place] [phone] PCP - General Internal Medicine 01/27/17 documented as of this encounter
--- OUTSIDE RECORDS SUMMARY | 2025-03-12 14:58 | XMS_ITS | Clinical Summary ---
Author Organization [facility] Address [address] [place] [address] Phone Care Team Providers Care Community Recreation Coordinator Name Role Phone Physician, No Pcp Primary Care Provider Unavaila ble Immunizations Name Administration Dates Next Due Pfizer SARS-CoV-2 COVID-19, mRNA, LNP-S, preservative free 11/18/2020 Social History Tobacco Use Types Packs/Day Years Used Date Smoking Tobacco: Never Assessed Comments Unknown Sex and Gender Information Value Date Recorded Sex Assigned at Female 04/18/2024 12:05 AM EDT Legal Sex Female 1:32 PM EDT Gender Identity Female 04/18/2024 12:05 AM EDT Sexual Orientation Straight 04/18/2024 12 :05 AM EDT Plan of Treatment Health Maintenance Due Date Last Done Comments Breast Cancer Screening 1960 Diabetes: Annual GFR (Glomerular Filtration Rate) 1960 Diabetes: Annual Foot Exam 12/21/1969 Diabetes: Annual Retina Eye Exam 12/21/1969 Cervical Cancer Screening: Pap Smear 12/21/1980 RSV Immunization Adult Patients (1 - Risk 60-74 years 1-dose series) 2019 Pneumococcal Vaccine: 50+ Years (3 of 3 - PCV) 12/01/2022 12/01/2021, 07/15/2011, 07/15/2011 Colorectal Cancer Screening: Colonoscopy 02/10/2024 Hepatitis C Screening 02/10/2024 Osteoporosis Screening (Bone Density Screening) 02/10/2024 Social Influencers of Health Screening 02/10/2024 Diabetes: Annual Urine Albumin-Creatinine Ratio (uACR) 04/18/2024 03/12/2022, 03/12/2022, 03/19/2021, Additional history exists Diabetes: Blood Sugar Control Test (HGBA1C) 04/18/2024 03/11/2022 Hypertension/CHF/CAD Annual BMP Blood Test 04/18/2024 Depression Screening 07/11/2024 DTaP,Tdap,and Td Vaccines (4 - Td or Tdap) 12/05/2024 12/05/2014, 09/25/1999, 09/25/1999 Falls Risk Assessment 12/21/2024 COVID-19 Vaccine (4 - season) 2025 03/23/2022, 11/18/2020, 10/21/2020 Influenza Vaccine (#1) 2025 , 04/10/2021, 05/08/2020, Additional history exists Cholesterol Screening (Lipid Panel) 03/12/2027 03/12/2022 Zoster Vaccines Completed 01/09/2021, 05/08/2020 HIB Vaccines Aged Out No longer eligi ble based on patient's age to complete this topic HPV Vaccines Aged Out No longer eligi ble based on patient's age to complete this topic Hepatitis A Vaccines Aged Out No long er eligible based on patient's age to complete this topic Hepatitis B Vaccines Aged Out No long er eligible based on patient's age to complete this topic IPV Vaccines Aged Out No longer eligi ble based on patient's age to complete this topic MMR Vaccines Aged Out No longer eligi ble based on patient's age to complete this topic Meningococcal ACWY Vaccine Aged Out N o longer eligible based on patient's age to complete this topic Meningococcal B Vaccine Aged Out No l onger eligible based on patient's age to complete this topic RSV Immunization Patients Under 20 months Aged Out No longer eligible based on patient's age to complete this topic Varicella Vaccines Aged Out No longer eligible based on patient's age to complete this topic Insurance [facility] Care Teams Community Recreation Coordinator Relationship Specialty Start Date End Date Physician, No Pcp PCP - General 05/12/22
--- OUTSIDE RECORDS SUMMARY | 2025-03-12 14:58 | XMS_ITS | Encounter Summary ---
Author Organization [facility] Address [address] [place] [address] Care Team Providers Care Fuse Spooler Name Role Phone Karen Reich MD Primary Care Provider Encounter Details Date Type Department Care Team (Late st Contact Info) Description 03/08/2025 Orders Only [facility] Internal Medicine [address] [place] [address] Karen Reich MD [address] [place] [address] Social History Tobacco Use Types Packs/Day Years Used Date Smoking Tobacco: Never Passive Smoke Exposure: Never Smokeless Tobacco: Never Comments:: Alcohol Use Standard Drinks/Week Comments Not Currently 0 (1 standard drink = 0.6 oz pur e alcohol) [facility] Utilities Answer Date Recorded In the past 12 months has [facility] electric, gas, oil, or water [employer] threatened to shut off services in your [...] Info) Description 03/13/2025 2:00 PM EDT Telehealth [facility] Anticoagulation Clinic [address] [place] [address] Wood Veneer Taper: Al Zhou NP [address] [place] [address] Arrived 03/20/2025 1:30 PM EDT Follow-Up [facility] [address] [place] [address] Shawna Camara MD [address] [place] [address] 03/25/2025 1:00 PM EDT Evaluation [facility] at [address] [place] [address] Wood Veneer Taper: Keke Nath PT 03/28/2025 1:15 PM EDT Follow-Up [facility] at [address] [phone] Reina Key OD [address] [place] [address] 03/28/2025 4:20 PM EDT Follow-Up [facility] Podiatry [address] [place] [address] Wood Veneer Taper: Mel Whitman NP [address] [place] [address] 05/07/2025 3:40 PM EDT Office Visit [facility] Plastic Cosmetic Surgery [address] [place] [address] Wood Veneer Taper: Segun Girard MD [address] [place] [address] 12/18/2025 1:00 PM EDT Office Visit [facility] production estimator [address] [place] [address] Libia Bhat MD [address] [place] [address] 12/23/2025 2:40 PM EDT Follow-Up [facility] Endocrinology Clinic [address] [place] [address] Wood Veneer Taper: Bran Hobbs MD [address] [place] [address] 12/23/2025 3:45 PM EDT Follow-Up [facility] B [address] [place] [address] Donnie Brasher MD [address] [place] [address] 12/24/2025 10:30 AM EDT Office Visit [facility] Diabetes Clinic [address] [place] [address] Wood Veneer Taper: Alfredo Rendon MD [address] [place] [address] 12/24/2025 1:00 PM EDT Follow-Up [facility] Rheumatology Clinic [address] [place] [address] Wood Veneer Taper: Ayse Resendiz MD [address] [place] [address] 12/27/2025 2:40 PM EDT Office Visit [facility] Lung [facility] All[facility] [address] [place] [address] Wood Veneer Taper: Martín Sanchez MD [address] [place] [address] 01/21/2026 3:30 PM EDT Follow-Up [facility] Building 4th floor Cardiology Medicine [address] [place] [address] Wood Veneer Taper: Scott Hutson MD [address] [place] [address] documented as of this encounter Visit Diagnoses Not on filedocumented in this encounter Care Teams Fuse Spooler Relationship Specialty Start Date End Date Karen Reich MD [address] [place] [phone] PCP - General Internal Medicine 01/27/17 documented as of this encounter
--- OUTSIDE RECORDS SUMMARY | 2025-03-12 14:58 | XMS_ITS | Clinical Summary ---
Author Organization [facility] Address [address] [place] [address] Care Team Providers Care Paediatric Thoracic Physician Name Role Phone Karen Reich MD Primary Care Provider [phone] Allergies Active Allergy Reactions Criticality Noted Date Comments Sulfamethoxazole-Trimethopri m Fever,Hives,Itching,Rash High 02/02/2010 Fentanyl Citrate (Pf) Hypoxia Medium 12/29/2022 Lisinopril Cough Low Medications * This document contains information received from the source organization and may not represent a complete record from that organization. blood-glucose meter misc Use as directed (one touch meter) 1 each 019 Active blood glucose diagnostic lancet 33 gauge Use to test QAC/HS 100 each 11 019 Active OneTouch Delica lancets 30 gauge Check blood sugar Q AC /HS 100 each 11 019 Active OneTouch Verio test strips Check blood sugar before meals 100 strip 3 020 Active cholecalciferol (VITAMIN D3) 2,000 unit capsule Take 2,000 Units by mouth once a day. Active ascorbic acid (VITAMIN C) 500 mg tablet Take 500 mg by mouth daily. Active famotidine (PEPCID) 20 mg tablet Take 1 tablet (20 mg total) by mouth 2 times a day as needed for heartburn. 180 tablet 3 023 2025 Active cyanocobalamin (vitamin B-12) 1,000 mcg tablet Take 1 tablet (1,000 mcg total) by mouth once a day. 90 tablet 3 023 Active FLUoxetine (PROzac) 20 mg capsule Take 2 capsules (40 mg total) by mouth once a day. 180 capsule 3 023 Active montelukast (SINGULAIR) 10 mg tablet Take 1 tablet (10 mg total) by mouth at bed time. 90 tablet 3 024 Active spironolactone (ALDACTONE) 25 mg tablet Take 0.5 tablets (12.5 mg total) by mouth once a day. 45 tablet 3 024 Active ketoconazole (NIZORAL) 2% shampoo Apply to scalp 2-3 times weekly. Apply to damp skin, lather, leave on 5 to 10 minutes, and rinse Active calcium carbonate-vitam in D3 (Calcium 600 + D,3,) 600 mg-10 mcg (400 unit) per tablet Take 1 tablet by mouth once a day. Active omeprazole (PriLOSEC) 20 mg capsule Take 20 mg by mouth 2 (two) times a day. Active acetaminophen (TYLENOL) 325 mg tablet Take 2 tablets (650 mg total) by mouth every 6 hours as needed for pain. 024 Active levothyroxine (SYNTHROID, LEVOTHROID) 25 mcg tablet Take 1.5 tablets (37.5 mcg total) by mouth once a day. 135 tablet 2 025 Active finasteride (PROSCAR) 5 mg tablet TAKE 1 TABLET (5 MG TOTAL) BY MOUTH NIGHTLY. NEEDS SHORT TERM 30 DAY SUPPLY WHILE AWAITING MAILORDER 90 tablet 1 025 Active ketoconazole (NIZORAL) 2% cream APPLY TOPICALLY TO THE AFFECTED AREA 2 TIMES A DAY. 180 g 1 025 Active atorvastatin (LIPITOR) 40 mg tablet TAKE 1 TABLET BY MOUTH EVERY DAY 90 tablet 1 025 Active levalbuterol (XOPENEX HFA) 45 mcg/actuation inhaler INHALE 2 PUFFS BY MOUTH 4 TIMES A DAY NEEDED FOR WHEEZING OR SHORTNESS OF BREATH. 15 g 2 025 Active warfarin (COUMADIN) 5 mg tablet Take as directed by the Anticoagulation clinic; not to exceed 1 tablet daily. 90 tablet 1 025 Active budesonide-form oteroL (Symbicort) 160-4.5 mcg inhaler Inhale 2 puffs by mouth 2 times a day. Rinse mouth with water after use. Do not swallow. J49 10.2 g 5 025 2025 Active abaloparatide (TYMLOS) 80 mcg (3,120 mcg/1.56 mL) pen injector Inject 0.04 mL (80 mcg total) under the skin once a day. 4.68 mL 3 025 2025 Active BD Ultra-Fine Eufemia Pen Needle 4 mm x 32 gIndications:Ag e-related osteoporosis with current pathological fracture with routine healing, subsequent encounter Use for subcutaneous injections once daily 90 each 3 Active metFORMIN ER (GLUCOPHAGE XR) 500 mg tablet Take 3 tablets (1,500 mg total) by mouth with evening meal. 270 tablet 3 025 2025 Active metoprolol succinate XL (TOPROL XL) 100 mg tablet Take 1 tablet (100 mg total) by mouth once a day. 90 tablet Active empagliflozin (JARDIANCE) 10 mg Take 1 tablet (10 mg total) by mouth once a day. 90 tablet 3 Active losartan (COZAAR) 100 mg tablet TAKE 1 TABLET BY MOUTH ONCE A DAY 90 tablet 3 Active baclofen (LIORESAL) 5 mg tablet Take 5 mg by mouth 3 times a day as needed. Active losartan (COZAAR) 100 mg tablet Take 1 tablet (100 mg total) by mouth once a day. 90 tablet 3 024 2024 Discontinued amoxicillin-cla vulanate (AUGMENTIN) 875-125 mg tablet Take 875 mg by mouth 2 times a day. 2024 Discontinued(T herapy Completed or No Longer Needed) azithromycin (ZITHROMAX) 250 mg tablet Take 250 mg by mouth once a day. 2024 Discontinued(T herapy Completed or No Longer Needed) fluoride, sodium, (PREVIDENT) 0.2% dental solution PLEASE SEE ATTACHED FOR DETAILED DIRECTIONS 2024 Discontinued(T herapy Completed or No Longer Needed) Active Problems Problem Noted Date Diagnosed Date Iron deficiency [...] steroid injection. Referral will be sent to [facility] ralf Marvin. She will be referred to Dr. [...] left breast which pathology has revealed is ER/MI positive and HER-2 negative. She underwent lumpectomy with adjuvant radiation. She elected not to go on hormonal therapy after discussion with her oncologist. She felt that the benefit she would gain did not outweigh the potential side effects. Assessment & Plan (02/29/2024 6:51 PM EDT): Patient will continue follow-up care in the breast center at [facility]. Assessment & Plan (03/21/2020 7:32 AM EDT): Patient will continue follow-up care in the breast center at [facility]. Assessment & Plan (09/06/2019 11:08 PM EST): She will continue follow-up with the breast center. Assessment & Plan (05/17/2019 11:38 AM EST): Patient is completing her radiation next week. Her oncologist is planning to start her on either anastrozole or tamoxifen. She is concerned about her bone health. Irish is currently followed by endocrinology for osteoporosis. 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 She is currently receiving Assessment & Plan (02/13/2019 4:05 PM EDT): Patient is scheduled for an evaluation in the breast clinic on 02/15/2019. She will be seeing Dr. 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 Home regimen PLASTIC PARTS FABRICATOR includes only metformin. FSBS signficantly elevated this [...] 2:23 PM EST): Patient with known pAfib. UYMIR0OURY of 4 for CHF, HTN, T2DM, and female gender. Home regimen PLASTIC PARTS FABRICATOR includes toprol 100mg daily and coumadin 5mg [...] CPAP for several years. 03/10/[address] [facility] mild, AHI 6, 85% Assessment & Plan [...] rx and required documents to [facility]. Reviewed operation /maintenance of her equipment. Assessment [...] then DVT in 1996. TIA in early . 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 -On life-long coumadin. -Since establishing care here, her NARA aPL are negative. -No thrombocytopenia, no rashes or skin ulcers relevant to APS. -Will continue to monitor. Assessment & Plan (12/20/2022 5:05 PM EDT): -History of PE in 1994 then DVT in 1996. TIA in early . 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 -On life-long [...] She will continue on current regimen. Her imaging specialist was considering addition of spironolactone however she [...] she is away on her cross-country trip. Resolved Problems Problem Noted Date Diagnosed Date [...] today. She will also follow-up with her runner on as scheduled for September. Acute otitis media [...] intertrochanteric fx. No symptoms of angina. PTHAL 2008: negative, 7 METS. TTE 2015 with LVEF 60-65%, no WMA, mild MR. Mary Risk: 0.53%. RCRI: 1 point, 6.0% risk [...] not improve she will follow-up. Postconcussive syndrome 02/21/20180 01/2019 Overview (02/21/2018): Patient had a fall [...] systolic CHF, though most recent TTE from 2016 showed LVEF 60-65%, no WMA, mild MR. [...] Urinary incontinence 01/25/2011 019 Urinary tract infection 01/25/2011/01/2019 Headache 12/11/2008 08/17/2018 Deep vein thrombosis of [...] given today as requested. Femur fracture 03/23/2021 Encounters Date Type Department Care Team Description 03/09/2025 Results Follow-Up [facility] Internal Medicine [address] [place] [phone] Karen Reich MD 03/08/2025 Orders Only [facility] Internal Medicine [address] [place] [phone] Karen Reich MD 03/08/2025 Refill [facility] 4th floor Cardiology Medicine [address] [place] [address] Dynamometer Repairer: Scott Hutson MD 03/04/2025 Documentation [facility] Anticoagulation Clinic [address] [place] [address] Dynamometer Repairer: Keaton Reeder MD MS 03/02/2025 Refill [facility] Internal Medicine [address] [place] [phone] Karen Reich MD 02/28/2025 1:40 PM EDT Follow-Up [facility] Podiatry [address] [place] [address] Dynamometer Repairer: Mel Whitman, JOAN Bilateral plantar fasciitis (Primary Dx); Pes planus of both feet 02/27/2025 2:20 PM EDT Office Visit [facility] Plastic Cosmetic Surgery [address] [place] [address] Dynamometer Repairer: Karen Mcginnis PA Neoplasm of uncertain behavior (Primary Dx) 02/27/2025 Results Follow-Up [facility] Cardiology [address] [place] [address] Scott Goncalves MD 02/26/2025 1:30 PM EDT Office Visit [facility] Internal Medicine [address] [place] [phone] Karen Reich MD 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, without long-term current use of insulin (HCC) (Primary Dx); LUIS ANTONIO (obstructive sleep apnea); Atrial fibrillation, unspecified type (HCC); APS (antiphospholipid syndrome) (HCC); Invasive ductal carcinoma of breast, left (HCC); Age-related osteoporosis with current pathological fracture with routine healing, subsequent encounter; Primary hypertension; Hyperlipidemia, unspecified hyperlipidemia type; Moderate persistent asthma without 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 (HCC) 02/26/2025 12:30 PM EDT Telehealth [facility] C-Note [address] [place] [address] Reynaldo Yang MD Primary hypertension (Primary Dx); 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 Building Cardiac Ultrasound [address] [place] [address] Scott Goncalves MD SOB (shortness of breath) Discharge Disposition: Home or Self Care () 02/25/2025 2:26 PM EDT - 02/25/2025 11:59 PM EDT Hospital Encounter [facility] Xray [address] [place] [address] Donnie Brasher MD Fusion of spine of thoracic region Discharge Disposition: Home or Self Care () 02/25/2025 2:00 PM EDT Follow-Up [facility] B [address] [place] [address] Donnie Brasher MD Fusion of spine of thoracic region (Primary Dx) 02/25/2025 External Contact [facility] Anticoagulation Clinic [address] [place] [address] Dynamometer Repairer: Keaton Reeder MD MS Antiphospholipid syndrome (HCC) (Primary Dx); FDC (current) use of anticoagulants 02/25/2025 Documentation [facility] [address] [place] [phone] Dynamometer Repairer: Keaton Reeder MD MS 02/19/2025 External Contact [facility]tico[facility] [address] [place] [address] Dynamometer Repairer: Keaton Reeder MD MS Antiphospholipid syndrome (HCC) (Primary Dx); FDC (current) use of anticoagulants 02/19/2025 Documentation [facility] [address] [place] [address] Dynamometer Repairer: Keaton Reeder MD MS 02/12/2025 Orders Only [facility] B [address] [place] [address] Donnie Brasher MD Fusion of spine of thoracic region (Primary Dx) 01/28/2025 Documentation [facility] [address] [place] [address] Dynamometer Repairer: Keaton Reeder MD MS 01/22/2025 8:20 AM EDT Office Visit [facility] Endocrinology Clinic [address] [place] [address] Dynamometer Repairer: Bran Hobbs MD Subclinical hypothyroidism (Primary Dx); Age-related osteoporosis with current pathological fracture with routine healing, subsequent encounter; Compression fracture of body of thoracic vertebra (HCC); Disorder of bone, unspecified 01/21/2025 Orders Only [facility] Internal Medicine [address] [place] [phone] Karen Reich MD 01/18/2025 3:20 PM EDT Follow-Up [facility] Podiatry [address] [place] [address] Dynamometer Repairer: Mel Whitman, JOAN Bilateral plantar fasciitis (Primary Dx); Pes planus of both feet; Type 2 diabetes mellitus without 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, 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 (HCC) 01/14/2025 External Contact [facility] [address] [place] [address] Dynamometer Repairer: Keaton Reeder MD MS Antiphospholipid syndrome (HCC) (Primary Dx); 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 01/14/2025 Documentation [facility] [address] [place] [phone] Dynamometer Repairer: Keaton Reeder MD MS 01/14/2025 Orders Only [facility] Internal Medicine [address] [place] [phone] Karen Reich MD Hemangioma of abdominal wall (Primary Dx) 01/10/2025 Orders Only [facility] Internal Medicine [address] [place] [phone] Karen Reich MD Abdominal wall mass (Primary Dx) 01/09/2025 myChart Message [facility] [address] [place] [address] Dynamometer Repairer: Ayse Resendiz MD Lab test orders 01/09/2025 DigitalGlobehart Message [facility] Internal Medicine [address] [place] [phone] Karen Reich MD Hemangioma 01/07/2025 10:17 AM EDT - 01/07/2025 11:59 PM EDT Hospital Encounter [facility] Xray [address] [place] [address] Thoracic spine pain; Fusion of spine of thoracic region Discharge Disposition: Home or Self Care (01) 01/07/2025 10:00 AM EDT Follow-Up [facility] B [address] [place] [address] Neel Morrison PA Spasm of thoracic back muscle (Primary Dx); Thoracic spine pain; Fusion of spine of thoracic region 01/04/2025 Telephone [facility] A [address] [place] [phone] Donnie Brasher MD 12/27/2024 External Contact [facility]tico[facility] [address] [place] [address] Dynamometer Repairer: Keaton Reeder MD MS Antiphospholipid syndrome (HCC) (Primary Dx); FDC (current) use of anticoagulants 12/27/2024 Documentation [facility] [address] [place] [address] Dynamometer Repairer: Keaton Reeder MD MS 12/25/2024 3:30 PM EDT Follow-Up [facility] 4th floor Cardiology Medicine [address] [place] [address] Dynamometer Repairer: Scott Hutson MD Primary hypertension (Primary Dx); Iron deficiency anemia, unspecified iron deficiency anemia type; SOB (shortness of breath); Chronic heart failure with preserved ejection fraction (HCC) 12/13/2024 External Contact [facility] [address] [place] [address] Dynamometer Repairer: Keaton Reeder MD MS Antiphospholipid syndrome (HCC) (Primary Dx); FDC (current) use of anticoagulants 12/13/2024 Documentation [facility] [address] [place] [address] Dynamometer Repairer: Keaton Reeder MD MS 12/10/2024 2:00 PM EDT Follow-Up [facility] [address] [place] [address] Dynamometer Repairer: Ayse Resendiz MD APS (antiphospholipid syndrome) (HCC) (Primary Dx) from Last 3 Months Immunizations Immunization Administration Dates Next Due COVID-19, Pfizer, mRNA, Biva lent Booster, PF, 30 mcg/0.3 mL dose (for age 12 y and up) 03/23/2022 Covid-19 Vaccine, J&J, Vecto r-nr, Rs-ad26, PF, 0.5 mL 06/15/2021 Covid-19, Moderna, mRNA, Vac cine, PF, 50 mcg/0.5 mL (for age 12 y and up) 04/28/2023 Covid-19, Pfizer, mRNA, Converse valent, PF 30 mcg/0.3 mL dose (for ages 12 and older) 11/18/2020,10/21/2020 Covid-19, Pfizer, mRNA, Converse valent, PF, 30 mcg/0.3 mL dose, jose-sucrose (COMIRNATY)(for ages 12 and older) 09/14/2021 Diphtheria and Tetanus Toxoi ds, Adsorbed for Pediatric Use 09/25/1999 INFLUENZA, SPLIT VIRUS, TRIVALENT, PF 04/09/2016 Influenza Virus Vaccine, Uns pecified Formulation 07/15/2011,04/26/2008 Influenza, Injectable, Quadr ivalent, Contains Preservative 04/19/2019 Influenza, Injectable, Quadr ivalent, Preservative Free 04/28/2023,04/01/2022,04/10/2021,05/08,03/22/2018 Influenza, Trivalent, MDV, Injectable ,05/26/2015,07/15/2011,04/26 Influenza, Unspecified 05/08/2020 Measles, Mumps, and Rubella Vaccine 02/26/2025 Pneumococcal Polysaccharide Vaccine, 23 Valent 12/01/2021,07/15/2011 Pneumococcal Vaccine, Unspec ified Formulation 07/15/2011 RSV vaccine, recombinant, pr otein subunit RSVpreF, adjuvant reconstituted, 0.5 mL, PF 04/28/2023 Tetanus Toxoid, Reduced Diph theria Toxoid, and Acellular Pertussis Vaccine, Adsorbed 02/26/2025,12/05/2014 Zoster Vaccine Recombinant 01/09/2021,05/08/2020 Family History Medical History Relation Name Comments Heart disease Brother 1 No Known Problems Brother 2 Breast cancer Cousin Diabetes Father Lung cancer Father met to brain Dementia Mother Depression Mother Diabetes Mother Stroke Mother Crohn's disease Mother's Brother Multiple sclerosis Mother's Sister 1 Anti-cardiolipin syndrome Mother's Sister 2 Navas Syndrome Other MSH6 mutation Other Other Family history of Coronary Artery Disease Breast cancer Paternal Grandmother Relation Name Status Comments Brother 1 Alive Brother 2 Alive Cousin Alive Father Alive Mother Alive Mother's Brother Mother's Sister 1 Mother's Sister 2 Other Paternal Grandmother Social History Tobacco Use Types Packs/Day Years Used Date Smoking Tobacco: Never Passive Smoke Exposure: Never Smokeless Tobacco: Never Tobacco Cessation:Counseling Given: Not Answered Comments:: Alcohol Use Standard Drinks/Week Comments Not Currently 0 (1 standard drink = 0.6 oz pur e alcohol) [facility] Utilities Answer Date Recorded In the past 12 months has e ttwick, oil, or water [employer] threatened to shut off services in your [...] file Not on file Not on file Last Filed Vital Signs Vital Sign Reading Time Taken Comments Blood Pressure 116/74 02/26/2025 1:41 PM EDT Pulse 83 02/26/2025 1:41 PM EDT Temperature 35.9 C (96.6 F) 02/26/2025 1:41 PM EDT Respiratory Rate 18 12/25/2024 3:20 PM EDT Oxygen Saturation 98% 02/26/2025 1:41 PM EDT Inhaled Oxygen Concentration - - Weight 93.9 kg (207 lb) 02/26/2025 1:41 PM EDT Height 167.6 cm (5' 6 ) 02/26/2025 1:41 PM EDT Body Mass Index 33.41 02/26/2025 1:41 PM EDT Plan of Treatment Upcoming Encounters Date Type Department Care Team (Late st Contact Info) Description 03/13/2025 2:00 PM EDT Telehealth [facility] Anticoagulation Clinic [address] [place] [phone] Dynamometer Repairer: Al Zhou NP [address] [place] [address] Arrived 03/20/2025 1:30 PM EDT Follow-Up [facility] [address] [place] [address] Shawna Camara MD [address] [place] [address] 03/25/2025 1:00 PM EDT Evaluation [facility] at [address] [place] [address], [address] [address] Dynamometer Repairer: Keke Nath PT 03/28/2025 1:15 PM EDT Follow-Up [facility] at [address] [phone] Reina Key OD [address] [place] [address] 03/28/2025 4:20 PM EDT Follow-Up [facility] Podiatry [address] [place] [address] Dynamometer Repairer: Mel Whitman NP [address] [place] [address] 05/07/2025 3:40 PM EDT Office Visit [facility] Plastic Cosmetic Surgery [address] [place] [address] Dynamometer Repairer: Segun Girard MD [address] [place] [address] 12/18/2025 1:00 PM EDT Office Visit [facility] 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 [address] [place] [address] Libia Bhat MD [address] [place] [address] 12/23/2025 2:40 PM EDT Follow-Up [facility] Endocrinology Clinic [address] [place] [address] Dynamometer Repairer: Bran Hobbs MD [address] [place] [address] 12/23/2025 3:45 PM EDT Follow-Up [facility] B [address] [place] [address] Donnie Brasher MD [address] [place] [address] 12/24/2025 10:30 AM EDT Office Visit [facility] [address] [place] [phone] Dynamometer Repairer: Alfredo Rendon MD [address] [place] [address] 12/24/2025 1:00 PM EDT Follow-Up [facility] [address] [place] [address] Dynamometer Repairer: Ayse Resendiz MD [address] [place] [address] 12/27/2025 2:40 PM EDT Office Visit [facility] [address] [place] [address] Dynamometer Repairer: Martín Sanchez MD [address] [place] [address] 01/21/2026 3:30 PM EDT Follow-Up [facility] 4th floor Cardiology Medicine [address] [place] [address] Dynamometer Repairer: Scott Hutson MD [address] [place] [address] Health Maintenance Due Date Last Done Comments Medicare AWV 12/21/1961 Pneumococcal Vaccine: 50+ Ye ars (3 of 3 - PCV) 12/01/2022 12/01/2021, 07/15/2011 Health Care Proxy Review 07/11/2024 Urine Microalbumin 02/23/2025 02/24/2024, 0 03/12/2022, 03/12/2022, Additional history exists COVID-19 Vaccine ( - 2024-2 6 season) 2025 04/28/2023, 03/23/2022, 09/14/2021, Additional history exists Influenza Vaccine (#1) 2025 , 04/28/2023, 04/01/2022, Additional history exists Ophthalmology Exam 04/03/2025 04/03/2024, 0 04/03/2024, 03/19/2024, Additional history exists Social Drivers of Health Alvina ual Screening 07/26/2025 07/26/2024 Hemoglobin A1C 09/04/2025 03/04/2025, 052 , 05/03/2024, Additional history exists Colonoscopy 11/30/2025 11/30/2022, 052 09/2022, 11/30/2022, Additional history exists Depression Screening and Follow-Up 02/26/2026 02/26/2025 Basic Metabolic Panel 03/04/2026 03/04/2025 , 01/28/2025, 12/27/2024, Additional history exists Cervical Cancer Screening 10/17/2029 HPV and Pap Smear 10/17/2029 10/17/2024, , 01/02/2004, Additional history exists Pap Smear 10/17/2029 10/17/2024, 08/2016, 01/02/2004, Additional history exists DTaP,Tdap,and Td Vaccines (4 - Td or Tdap) 02/26/2035 02/26/2025, 12/05/2014, 09/25/1999 Zoster Vaccines Completed 01/09/2021, 05/08/2020 RSV Vaccine (60+ years old a nd patients) Completed 04/28/2023 Osteoporosis Screening Completed , 08/24/2021, 02/08/2019 Mammogram Discontinued 03/08/2024, 02/09, 01/17/2023, Additional history exists Alcohol/Substance Use Screening Completed HIV Screening Discontinued Hepatitis B Vaccines Discontinued Hepatitis C Screening Discontinued Medical Devices Implanted Type Area Fish Hatchery Inspector Device Identifier Shelf Expiration Date Model / Serial / Lot Filter Vena Cava Retreivable 5fr 70cm Option Elite - [id number] Implanted:Qty: 1 on 04/26/[address] [facility] IVC Filter [employer] [id number] 11/07/2026 [id number] / / [id number] Javon Spinal Precut Hex End Titanium [id number] Expedium - [id number] Implanted:Qty: 1 on 05/07/2024 by Donnie Brasher MD at [facility] Implant DEPUY [id number] / / Nail Trochanteric Cannulated Titanium Sterile Green Left 130 Degree [id number] - [id number] Implanted:Qty: 1 on 08/18/2018 by Mehul Fuentes MD at [facility] Nail Left: Femur DEPUY Incentive SALES 01/07/2022 [id number] / / [id number] Screw Locking With T25 Stardrive Recess Titanium Sterile Blue [id number] Expert - [id number] Implanted:Qty: 2 on 08/18/2018 by Mehul Fuentes MD at [facility] [facility] Screw Left: Femur DEPUY SYNTHES SALES 04.005.4 30S / / Screw Spinal Cortical Fixed Titanium [id number] Viper - [id number] Implanted:Qty: 1 on 05/07/2024 by Donnie Brasher MD at [facility] Screw DEPUY 1867-04- 120 / / Screw Spinal Cortical Fixed Titanium [id number] Viper - [id number] Implanted:Qty: 4 on 05/07/2024 by Donnie Brasher MD at [facility] Screw DEPUY 1867-90- 910 / / Screw Spinal Cortical Fixed Titanium 5.2oho26bd Viper - [id number] Implanted:Qty: 1 on 05/07/2024 by Donnie Brasher MD at [facility] Screw DEPUY 6807-76- 440 / / Screw Spinal Cortical Fixed Titanium 6.3que20uz Viper - [id number] Implanted:Qty: 5 on 05/07/2024 by Donnie Brasher MD at [facility] Screw DEPUY 5551-51- 927 / / Screw Set Single Innie Titanium [id number] Expedium - [id number] Implanted:Qty: 12 on 05/07/2024 by Donnie Brasher MD at [facility] DEPUY 1797-02- 000 / / Screw Cortical Polyaxial Titanium [id number] Viper - [id number] Implanted:Qty: 1 on 05/07/2024 by Donnie Brasher MD at [facility] DEPUY SYNTHES SALES 4673-67- [id number] / / Putty Demineralized Bone Matrix 10cc Dbx - [id number] - [id number] Implanted:Qty: 1 on 05/07/2024 by Donnie Brasher MD at [facility] Tissue MUSCULOSKELETAL TRANSPLANT FND 01/10/2026 [id number] / [id number] / Procedures * Due to [place] state law, this organization might not be sharing negative HIV tests. 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, without long-term current use of insulin (HCC) PROTIME-INR STAT 03/04/2025 2:21 PM EDT Antiphospholipid syndrome (HCC) TRANSTHORACIC ECHO (TTE) COMPLETE Routine 02/26/2025 11:20 AM EDT SOB (shortness of breath) XR THORACIC SPINE 2 VIEWS Routine 02/25/2025 2:33 PM EDT Fusion of spine of thoracic region PROTIME-INR STAT 02/25/2025 1:02 PM EDT Antiphospholipid syndrome (HCC) CBC AUTO DIFFERENTIAL Routine 02/18/2025 2:04 PM EDT Abdominal wall mass PTT Routine 02/18/2025 2:04 PM EDT Abdominal wall mass PROTIME-INR Routine 02/18/2025 2:04 PM EDT Abdominal wall mass TSH Routine 01/28/2025 11:27 AM EDT Age-related osteoporosis with current pathological fracture with routine healing, subsequent encounter Subclinical hypothyroidism Compression fracture of body of thoracic vertebra (HCC) T4, FREE Routine 01/28/2025 11:27 AM EDT Age-related osteoporosis with current pathological fracture with routine healing, subsequent encounter Subclinical hypothyroidism Compression fracture of body of thoracic vertebra (HCC) RENAL FUNCTION PANEL Routine 01/28/2025 11:27 AM EDT Age-related osteoporosis with current pathological fracture with routine healing, subsequent encounter Subclinical hypothyroidism Compression fracture of body of thoracic vertebra (HCC) VITAMIN D, 25-HYDROXY, TOTAL, IMMUNOASSAY Routine 01/28/2025 11:27 AM EDT Age-related osteoporosis with current pathological fracture with routine healing, subsequent encounter Subclinical hypothyroidism Compression fracture of body of thoracic vertebra (HCC) Disorder of bone, unspecified PROTIME-INR STAT 01/28/2025 11:27 AM EDT Antiphospholipid syndrome (HCC) PROTIME-INR STAT 01/14/2025 2:24 PM EDT Antiphospholipid syndrome (HCC) XR THORACIC SPINE 2 VIEWS Routine 01/07/2025 10:38 AM EDT Thoracic spine pain Fusion of spine of thoracic region PROTIME-INR STAT 12/27/2024 12:40 PM EDT Antiphospholipid syndrome (HCC) CBC Routine 12/27/2024 12:40 PM EDT Iron deficiency anemia, unspecified iron deficiency anemia type BASIC METABOLIC PANEL Routine 12/27/2024 12:40 PM EDT Iron deficiency anemia, unspecified iron deficiency anemia type N-TERMINAL PROBRAIN NATRIURETIC PEPTIDE Routine 12/27/2024 12:40 PM EDT Chronic heart failure with preserved ejection fraction (HCC) ECG 12-LEAD Routine 12/25/2024 3:23 PM EDT Primary hypertension PROTIME-INR STAT 12/13/2024 11:53 AM EDT Antiphospholipid syndrome (HCC) PROCEDURE - SCANNED 12/13/2024 [facility] PAP W/HPV, MRNA E6/E7, REFLEX Routine 10/17/2024 3:55 PM EDT Pap smear for cervical cancer screening MAMMOGRAPHY, BILATERAL Routine 03/08/2024 2:56 PM EDT MICROALBUMIN, RANDOM URINE WITH CREATININE Routine 02/24/2024 11:44 AM EDT 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 * (ABNORMAL) Protime-INR (03/04/2025 2:21 PM EDT) Only the most recent of7 resultswithin the time period is included. PT 34.0(H) 9.6 - 12.4 Seconds 03/04/2025 4:17 PM EDT [facility] INR 3.3 0.9 - 1.1 03/04/2025 4:17 PM EDT [facility] CLINICAL PATHOLOGY LABORATORY Comment:The optimal therapeu tic INR range for patients treated with Vitamin K antagonists (VKAS, e.g., Warfarin) is 2.0 to 3.5. Discuss the desired range with your doctor/care team. Blood Structure of peripheral vein / Unknown Venipuncture / Unknown 03/04/2025 2:21 PM EDT 03/04/2025 2:21 PM EDT Denice Schmitz CLIENT TECHNICAL SPECIALIST LAB BLOOD ORDERABLES Final Result [facility] CLINICAL PATHOLOGY LABORATORY [address] [place] [phone], * (ABNORMAL) Hemoglobin A1c (03/04/2025 2:21 PM EDT) Hemoglobin A1C 7.4(H) <5.7 % 03/05/2025 8:50 AM EDT [facility] Comment: For someone without known diabetes, a hemoglobin A1c value of 6.5% or greater indicates that they may have diabetes and this should be confirmed with a follow-up test. For someone with known diabetes, a value <7% indicates that their diabetes is well controlled and a value greater than or equal to 7% indicates suboptimal control. A1c targets should be individualized based on duration of diabetes, age, comorbid conditions, and other considerations. Currently, no consensus exists regarding use of hemoglobin A1c for diagnosis of diabetes for children. eAG (MG/DL) 166 mg/dL 03/05/2025 8:50 AM EDT [facility] eAG (MMOL/L) 9.2 mmol/L 03/05/2025 8:50 AM EDT [facility] Blood Structure of peripheral vein / Unknown Venipuncture / Unknown 03/04/2025 2:21 PM EDT 03/04/2025 2:21 PM EDT Narrative [facility] - 03/05/2025 8:50 AM EDT [facility] Received Date: Karen Reich MD LAB BLOOD ORDERABLES Final Re sult [facility] [address] [facility] [address], [place] [address], [place] [phone] [facility] [address] [facility] [address], [place] [address], [place] [phone] * (ABNORMAL) Lipid panel (03/04/2025 2:21 PM EDT) Cholesterol 174 <=199 mg/dL 03/04/2025 4:30 PM EDT [facility] CL[facility] PATHOLOG[facility] LAB[facility]ATORY Triglycerides 241(H) <=149 mg/dL 03/04/2025 4:30 PM EDT [facility] Cholesterol, HDL 43 40 - 59 mg/dL 03/04/2025 4:30 PM EDT [facility] Cholesterol, Non-HDL 131 mg/dL 03/04/2025 4:30 PM EDT [facility] LDL Cholesterol 83 <100 mg/dL [facility] 03/04/2025 4:30 PM EDT [facility] LAB[facility] Comment:LDL-C is calculated using the Friedewald calculation. VLDL 48.2 mg/dL [facility] 03/04/2025 4:30 PM EDT [facility] LAB[facility] Cholesterol/HDL Ratio 4.0 [facility] 03/04/2025 4:30 PM EDT [facility] Blood Structure of peripheral vein / Unknown Venipuncture / Unknown 03/04/2025 2:21 PM EDT 03/04/2025 2:21 PM EDT Narrative [facility] PATH[facility] LAB[facility] - 03/04/2025 4:30 PM EDT Adult Treatment Panel III Guidelines of NCEP 2001 Category: Total Cholesterol (mg/dL) Desirable <200 Borderline High 200-239 High >=240 Category: LDL Cholesterol (mg/dL) Optimal <100 Near Optimal/Above Optimal 100-129 Borderline High 130-159 High 160-189 Very High >=190 Category: HDL Cholesterol (mg/dL) Low <40 High >=60 NCEP's Expert Panel on Blood Cholesterol in Children and Adolescents Category: Total Cholesterol (mg/dL) Desirable <170 Borderline High 170-199 High >=200 Category: LDL Cholesterol (mg/dL) Desirable <110 Borderline High 110-129 High >=130 us Karen Reich MD LAB BLOOD ORDERABLES Final Re sult [facility] CL[facility] PATHOLOG[facility] LABORATORY [address] [place] [address], * (ABNORMAL) Comprehensive Metabolic Panel (03/04/2025 2:21 PM EDT) NA 140 135 - 145 mmol/L 03/04/2025 4:30 PM EDT [facility] LAB[facility] K 5.0 3.5 - 5.3 mmol/L 03/04/2025 4:30 PM EDT [facility] Cl 105 98 - 107 mmol/L 03/04/2025 4:30 PM EDT [facility] CO2 21(L) 22 - 32 mmol/L 03/04/2025 4:30 PM EDT [facility] Anion Gap 14 5 - 15 [place] [facility] 03/04/2025 4:30 PM EDT [facility] Glucose 127(H) 65 - 99 mg/dL 03/04/2025 4:30 PM EDT [facility] Creatinine 1.13 0.50 - 1.20 mg/dL 03/04/2025 4:30 PM EDT [facility] Calcium 10.0 8.6 - 10.5 mg/dL 03/04/2025 4:30 PM EDT [facility] Total Protein 7.3 6.0 - 8.0 g/dL 03/04/2025 4:30 PM EDT [facility] Albumin 4.3 3.5 - 5.2 g/dL 03/04/2025 4:30 PM EDT [facility] Bilirubin, Total 0.4 0.2 - 1.2 mg/dL 03/04/2025 4:30 PM EDT [facility] Alkaline Phosphatase 100 35 - 129 U/L 03/04/2025 4:30 PM EDT [facility] AST 22 10 - 40 U/L 03/04/2025 4:30 PM EDT [facility] ALT 14 10 - 40 U/L 03/04/2025 4:30 PM EDT [facility] LAB[facility] BUN 29(H) 7 - 23 mg/dL 03/04/2025 4:30 PM EDT [facility] eGFR 54(L) >=60 mL/min/1. 73m2 [facility] 03/04/2025 4:30 PM EDT [facility] PATHOLOG[facility] LAB[facility]ORY Comment:The estimated glomer ular filtration rate (eGFR) is calculated using a new formula developed by the NKF-ASN task force to eliminate race-based correction factors. The new formula uses serum/plasma creatinine, age, and gender to determine eGFR. A value below 60mls/min might indicate kidney disease and will be flagged. For additional information, see Catalina et al, Am J Kidney Dis. 2021;79(2):268- 288, A Unifying Approach for GFR estimation: Recommendations of the NKF-ASN Task Force on Reassessing the Inclusion of Race in Diagnosing Kidney Disease . Globulin, Total 3.0 2.1 - 4.2 g/dL [facility] 03/04/2025 4:30 PM T [facility] A/G Ratio 1.4(L) 1.5 - 3.0 [facility] 03/04/2025 4:30 PM T [facility] Blood Structure of peripheral vein / Unknown Venipuncture / Unknown 03/04/2025 2:21 PM EDT 03/04/2025 2:21 PM EDT Karen Reich MD LAB BLOOD ORDERABLES Final Re sult [facility] [address] [place] [address], [place] * TRANSTHORACIC ECHO (TTE) COMPLETE (02/26/2025 11:20 AM EDT) BSA 2.11 m2 LVIDD 4.8 cm LVIDS 2.9 cm IVS 0.8 cm LVOT diameter 2.3 cm LVOT area 4.15 cm2 Relative Wall Thickness 0.33 PW 0.8 cm LV Mass Index 60 g/m2 MV Peak E Dereck 0.93 m/s MV avg E/e' 15.95 MV Peak A Dereck 0.98 m/s E/A ratio 1.00 Lateral e' 0.06 m/s E wave deceleration time 190.3 msec Septal e' 0.05 m/s MV E/E' Tissue Velocity Lateral 14.61 LA Volume Index 41 mL/m2 MV E/e' septal 17.57 LA volume 78 mL TAPSE 1.8 cm LA size 4.0 cm RA 2D single-plane vol 20 mL RA vol index 9.80 mL/m2 Ascending aorta 3.3 cm Ao-asc Z score 0.45 LV ED Post Wall 0.80 LV ES Dimension 2.90 LV ED Dimension 4.80 Aortic Valve Diam 2.3 cm Sinus 3.4 cm Aortic Root Z-score 0.26 Dummy BSA 2.05 [facility] RV TISSUE DOPPLER S' 12.0 cm/s Anatomical Region Laterality Modality Heart Echocardiography Narrative 02/26/2025 3:36 PM EDT Normal left ventricular size and global systolic function. Visually estimated LVEF is 55 to 60%. Abnormal diastolic function with likely normal filling pressures. Normal right ventricular systolic function. Dilated left atrium. No hemodynamically significant valve disease. Left Ventricle The left ventricle size is normal. Normal left ventricular wall thickness. Left ventricular mass index is normal. No segmental wall motion abnormalities detected, although this possibility cannot be fully excluded based on the images available. Normal left ventricular systolic function with visually estimated LVEF 55-60%. Abnormal left ventricular diastolic function. Estimated left ventricular filling pressure is normal. Right Ventricle Right ventricle not well visualized. Normal right ventricular systolic function. TAPSE is normal (>=1.7 cm). Tissue Doppler peak systolic velocity is normal (>9.5 cm/s). Global longitudinal strain in the right ventricle is normal. Left Atrium Left atrium is mildly dilated. Left atrium volume index is 41 mL/m2. Right Atrium Right atrium is normal in size. IVC/SVC IVC was not well visualized. Mitral Valve Mildly calcified mitral leaflets. Mild mitral annular calcification. Trace mitral regurgitation. No mitral stenosis. Tricuspid Valve Tricuspid valve structure is normal. Mild tricuspid regurgitation. No tricuspid stenosis. Aortic Valve Mild aortic valve cusp thickening. Mild aortic valve calcification. No aortic regurgitation. No aortic stenosis. Pulmonic Valve Normal pulmonic valve without significant regurgitation or stenosis. Ascending Aorta The sinuses of Valsalva and ascending aorta are normal. Pericardium No pericardial effusion. Pulmonary Artery TR jet was inadequate to estimate pulmonary artery pressure. Atrial Septum No interatrial shunt detected by color flow Doppler. Ventricular Septum Normal septal motion. Study Details A complete echo was performed using 2D imaging, color flow Doppler and complete spectral Doppler. During the study the apical, parasternal, subcostal and suprasternal view was captured. Overall the study quality was adequate. Prior Study When compared to the prior TTE performed on 06/02/2022, findings are similar. . us Scott Goncalves MD ECHO PROCEDURES Final Result * XR Thoracic Spine 2 Views (02/25/2025 2:33 PM EDT) Only the most recent of2 resultswithin the time period is included. Anatomical Region Laterality Modality Spine, T-spine Computed Radiogr aphy 02/25/2025 4:00 PM EDT Impressions 02/25/2025 4:19 PM EDT FINDINGS/IMPRESSION: Similar alignment of prior posterior instrumented fusion hardware spanning T6- T12 vertebral bodies. Similar configuration of known T9 3-column fracture. Similar configuration of fractures involving T8, T10 vertebral bodies. There is exaggeration of thoracic kyphosis. Multilevel degeneration of the spine with facet arthrosis. Multilevel flowing ossification bridging multiple vertebral bodies in keeping with diffuse idiopathic skeletal hyperostosis. If this radiology report contains a blank impression section, it is an incomplete radiology report. Please contact the interpreting radiologist or applicable radiology division as soon as possible to obtain the completed interpretation. Workstation ID: [id number] Narrative 02/25/2025 4:19 PM EDT COMPARISON: Radiographs thoracic spine 01/07/2025 Resulting Agency Comment [id number] Procedure Note Tammy Morgan MD - 02/25/2025 COMPARISON: Radiographs thoracic spine 01/07/2025 IMPRESSION: FINDINGS/IMPRESSION: Similar alignment of prior posterior instrumented fusion hardware spanningT6-T12 vertebral bodies. Similar configuration of known T9 3-columnfracture. Similar configuration of fractures involving T8, T10 vertebralbodies. There is exaggeration of thoracic kyphosis. Multilevel degeneration of the spine with facet arthrosis. Multilevelflowing ossification bridging multiple vertebral bodies in keeping withdiffuse idiopathic skeletal hyperostosis. If this radiology report contains a blank impression section, it is anincomplete radiology report. Please contact the interpreting radiologistor applicable radiology division as soon as possible to obtain thecompleted interpretation. Workstation ID: [id number] Donnie Brsaher MD IMG XR PROCEDURES Final Result * (ABNORMAL) CBC Auto Differential (02/18/2025 2:04 PM EDT) WBC 5.4 3.8 - 10.8 10*3/uL 02/18/2025 5:00 PM EDT [facility] CL[facility] PATHOLOG[facility] LAB[facility]AT[facility] RBC 4.19 3.80 - 5.10 10*6/uL 02/18/2025 5:00 PM EDT [facility] LAB[facility] Hemoglobin 9.4(L) 11.7 - 15.5 g/dL 02/18/2025 5:00 PM EDT [facility] LAB[facility] Hematocrit 32.4(L) 35.0 - 45.0 % 02/18/2025 5:00 PM EDT [facility] MCV 77.3(L) 80.0 - 100.0 fL 02/18/2025 5:00 PM EDT [facility] MCH 22.4(L) 27.0 - 33.0 pg 02/18/2025 5:00 PM EDT [facility] MCHC 29.0(L) 32.0 - 36.0 g/dL 02/18/2025 5:00 PM EDT [facility] RDW 17.3(H) 11.0 - 15.0 % 02/18/2025 5:00 PM EDT [facility] Platelets 241 140 - 400 10*3/uL 02/18/2025 5:00 PM EDT [facility] MPV 10.4 7.5 - 12.5 fL 02/18/2025 5:00 PM EDT [facility] Neutrophil % 65.1 % 02/18/2025 5:00 PM EDT [facility] Immature Grans % 0.2 0.0 - 0.9 % 02/18/2025 5:00 PM EDT [facility] Lymphocyte % 22.9 % 02/18/2025 5:00 PM EDT [facility] Monocyte % 6.1 % 02/18/2025 5:00 PM EDT [facility] Eosinophil % 4.8 % 02/18/2025 5:00 PM EDT [facility] Basophil % 0.9 % 02/18/2025 5:00 PM EDT [facility] Neutrophil # 3.53 1.50 - 7.80 10*3/uL 02/18/2025 5:00 PM EDT [facility] CLINICAL PATHOLOGY LABORATORY Immature Grans # <0.03 <=0.03 10*3/uL 02/18/2025 5:00 PM EDT [facility] CL[facility] PATHOLOG[facility] LAB[facility] Lymphocyte # 1.20 0.85 - 3.90 10*3/uL 02/18/2025 5:00 PM EDT [facility] CL[facility] PATHOLOG[facility] LAB[facility]ORY Monocyte # 0.30 0.20 - 0.95 10*3/uL 02/18/2025 5:00 PM EDT [facility] CL[facility] PATHOLOG[facility] LAB[facility] Eosinophil # 0.30 0.02 - 0.50 10*3/uL 02/18/2025 5:00 PM EDT [facility] CL[facility] PATHOLOG[facility] LAB[facility] Basophil # 0.10 0.00 - 0.20 10*3/uL 02/18/2025 5:00 PM EDT [facility] CL[facility] PATHOLOG[facility] LAB[facility] nRBC % 0.0 /100 WBCs 02/18/2025 5:00 PM EDT [facility] CL[facility] PATHOLOG[facility] LAB[facility] nRBC # <0.01 <0.01 10*3/uL 02/18/2025 5:00 PM EDT [facility] CL[facility] PATHOLOG[facility] LAB[facility] Blood Structure of peripheral vein / Unknown Venipuncture / Unknown 02/18/2025 2:04 PM EDT 02/18/2025 2:04 PM EDT us Karen Reich MD LAB BLOOD ORDERABLES Final Re sult [facility] CL[facility] PATHOLOGY LABORATORY [address] [place] [address], [place] * (ABNORMAL) PTT (02/18/2025 2:04 PM EDT) aPTT 42.4(H) 23.0 - 32.0 Seconds 02/18/2025 5:38 PM EDT [facility] CL[facility] PATHOLOG[facility] LAB[facility] Comment: Current PTT reagent is not sensitive to detect all Lupus Anticoagulant (LA) Inhibitor Cases. If a LA is suspected, please order a Lupus Anticoagulation w/ Reflex Test which is performed at [facility] in [place], [place]. Blood Structure of peripheral vein / Unknown Venipuncture / Unknown 02/18/2025 2:04 PM EDT 02/18/2025 2:04 PM EDT Karen Reich MD LAB BLOOD ORDERABLES Final Re sult [facility] [address] [place] [address], [place] * Vitamin D, 25-Hydroxy, Total, Immunoassay (01/28/2025 11:27 AM EDT) Calcidiol+ercalc idiol 33 30 - 100 ng/mL 01/28/2025 11:44 PM EDT [facility] Comment: Vitamin D Status 25-OH Vitamin D: Deficiency: <20 ng/mL Insufficiency: 20 - 29 ng/mL Optimal: > or = 30 ng/mL For 25-OH Vitamin D testing on patients on D2-supplementation and patients for whom quantitation of D2 and D3 fractions is required, the QuestAssureD(TM) 25-OH VIT D, (D2,D3), LC/MS/MS is recommended: order code [id number] (patients >2yrs). See Note 1 Note 1 For additional information, please refer to http://education.[employer]/faq/JVD070 (This link is being provided for informational/ educational purposes only.) Blood Structure of peripheral vein / Unknown Venipuncture / Unknown 01/28/2025 11:27 AM EDT 01/28/2025 11:27 AM EDT Narrative [facility] - 01/28/2025 11:44 PM EDT [facility] Received Date:[id number] Bran Finn MD LAB BLOOD ORDERABLES Final R esult [facility] [address] [facility] [address], [place] [address], [facility] [facility] [address] [facility] [address], [place] [address], * TSH (01/28/2025 11:27 AM EDT) TSH 3.080 0.280 - 3.890 uIU/mL 01/28/2025 1:24 PM EDT [facility] Comment: Females: 1st trimester 0.150-4.000 IU/mL 2nd trimester 0.310-4.170 IU/mL 3rd trimester 0.380-4.150 IU/mL Blood Structure of peripheral vein / Unknown Venipuncture / Unknown 01/28/2025 11:27 AM EDT 01/28/2025 11:27 AM EDT Bran Finn MD LAB BLOOD ORDERABLES Final R esult [facility] LAB[facility] [address] [place] [phone], * T4, Free (01/28/2025 11:27 AM EDT) Free T4 1.37 0.80 - 1.80 ng/dL 01/28/2025 1:24 PM EDT [facility] Comment: Females: (ng/dL) First Trimester 0.95-1.58 ng/dL Second Trimester 0.76-1.24 ng/dL Third Trimester 0.70-1.25 ng/dL Dietary supplements containing biotin may interfere in assays and may skew analyte results to be falsely high. For patients receiving the recommended daily doses of biotin, draw samples at least 8 hours following the last biotin supplementation. For patients on gely-doses of biotin supplements, draw samples at least 72 hours following the last biotin supplementation. Effective 2024, Free T4 reference range (>=18 years old) is 0.8 - 1.8 ng/dL, replacing the previous range of 0.93 - 1.70 ng/dL. Blood Structure of peripheral vein / Unknown Venipuncture / Unknown 01/28/2025 11:27 AM EDT 01/28/2025 11:27 AM EDT us Bran Finn MD LAB BLOOD ORDERABLES Final R esult [facility] CL[facility] PATHOLOGY LABORATORY [address] [place] [address], [place] * (ABNORMAL) Renal Function Panel (01/28/2025 11:27 AM EDT) NA 140 135 - 145 mmol/L 01/28/2025 1:24 PM EDT [facility] CL[facility]ICAL PATHOLOGY LABORATORY K 4.6 3.5 - 5.3 mmol/L 01/28/2025 1:24 PM EDT [facility] Cl 104 98 - 107 mmol/L 01/28/2025 1:24 PM EDT [facility] CO2 23 22 - 32 mmol/L 01/28/2025 1:24 PM EDT [facility] Anion Gap 13 5 - 15 [place] [facility] 01/28/2025 1:24 PM EDT [facility] Glucose 120(H) 65 - 99 mg/dL 01/28/2025 1:24 PM EDT [facility] BUN 28(H) 7 - 23 mg/dL 01/28/2025 1:24 PM EDT [facility] Creatinine 1.05 0.50 - 1.20 mg/dL 01/28/2025 1:24 PM EDT [facility] Calcium 10.1 8.6 - 10.5 mg/dL 01/28/2025 1:24 PM EDT [facility] Phosphorus 3.7 2.5 - 4.5 mg/dL 01/28/2025 1:24 PM EDT [facility] Albumin 4.3 3.5 - 5.2 g/dL 01/28/2025 1:24 PM EDT [facility] eGFR 59(L) >=60 mL/min/1. 73m2 [place] [facility] 01/28/2025 1:24 PM EDT [facility] Comment:The estimated glomer ular filtration rate (eGFR) is calculated using a new formula developed by the NKF-ASN task force to eliminate race-based correction factors. The new formula uses serum/plasma creatinine, age, and gender to determine eGFR. A value below 60mls/min might indicate kidney disease and will be flagged. For additional information, see Catalina et al, Am J Kidney Dis. 2021;79(2):268- 288, A Unifying Approach for GFR estimation: Recommendations of the NKF-ASN Task Force on Reassessing the Inclusion of Race in Diagnosing Kidney Disease . Blood Structure of peripheral vein / Unknown Venipuncture / Unknown 01/28/2025 11:27 AM EDT 01/28/2025 11:27 AM EDT Bran Finn MD LAB BLOOD ORDERABLES Final R esult [facility] LAB[facility] [address] [place] [address], * N-terminal ProBrain Natriuretic Peptide (12/27/2024 12:40 PM EDT) Pro-B-Type Natriuretic Peptide 140 <300 pg/mL 12/27/2024 4:35 PM EDT [facility] LAB[facility] Comment: Patient Age: Congestive Heart Failure (CHF) Risk <18 Years: Not Established 18-49 Years: <300 pg/mL - Normal, CHF Unlikely >=450 pg/mL - High Probability of CHF 50-75 Years: <300 pg/mL - Normal, CHF Unlikely >=900 pg/mL - High Probability of CHF >75 Years: <300 pg/mL - Normal, CHF Unlikely >=1800 pg/mL - High Probability of CHF Blood Structure of peripheral vein / Unknown Venipuncture / Unknown 12/27/2024 12:40 PM EDT 12/27/2024 12:40 PM EDT Scott Goncalves MD LAB BLOOD ORDERABLES Final Resul t [facility] [address] [place] [address], * (ABNORMAL) CBC (12/27/2024 12:40 PM EDT) WBC 6.6 3.8 - 10.8 10*3/uL 12/27/2024 4:14 PM EDT [facility] CL[facility] LABORAT[facility] RBC 4.23 3.80 - 5.10 10*6/uL 12/27/2024 4:14 PM EDT [facility] Hemoglobin 9.6(L) 11.7 - 15.5 g/dL 12/27/2024 4:14 PM EDT [facility] LAB[facility] Hematocrit 31.7(L) 35.0 - 45.0 % 12/27/2024 4:14 PM EDT [facility] MCV 74.9(L) 80.0 - 100.0 fL 12/27/2024 4:14 PM EDT [facility] LAB[facility] MCH 22.7(L) 27.0 - 33.0 pg 12/27/2024 4:14 PM EDT [facility] MCHC 30.3(L) 32.0 - 36.0 g/dL 12/27/2024 4:14 PM EDT [facility] LAB[facility] RDW 17.2(H) 11.0 - 15.0 % 12/27/2024 4:14 PM EDT [facility] Platelets 279 140 - 400 10*3/uL 12/27/2024 4:14 PM EDT [facility] MPV 10.4 7.5 - 12.5 fL 12/27/2024 4:14 PM EDT [facility] Blood Structure of peripheral vein / Unknown Venipuncture / Unknown 12/27/2024 12:40 PM EDT 12/27/2024 12:40 PM EDT us Scott Goncalves MD LAB BLOOD ORDERABLES Final Resul t [facility] [address] [place] [address], * (ABNORMAL) Basic Metabolic Panel (12/27/2024 12:40 PM EDT) NA 141 135 - 145 mmol/L 12/27/2024 4:50 PM EDT [facility] LAB[facility] K 4.7 3.5 - 5.3 mmol/L 12/27/2024 4:50 PM EDT [facility] Cl 105 98 - 107 mmol/L 12/27/2024 4:50 PM EDT [facility] CO2 21(L) 22 - 32 mmol/L 12/27/2024 4:50 PM EDT [facility] BUN 32(H) 7 - 23 mg/dL 12/27/2024 4:50 PM EDT [facility] Creatinine 1.08 0.50 - 1.20 mg/dL 12/27/2024 4:50 PM EDT [facility] Glucose 147(H) 65 - 99 mg/dL 12/27/2024 4:50 PM EDT [facility] Calcium 10.5 8.6 - 10.5 mg/dL 12/27/2024 4:50 PM EDT [facility] LAB[facility] Anion Gap 15 5 - 15 [place] [facility] 12/27/2024 4:50 PM EDT [facility] eGFR 57(L) >=60 mL/min/1. 73m2 [place] [facility] 12/27/2024 4:50 PM EDT [facility] Comment:The estimated glomer ular filtration rate (eGFR) is calculated using a new formula developed by the NKF-ASN task force to eliminate race-based correction factors. The new formula uses serum/plasma creatinine, age, and gender to determine eGFR. A value below 60mls/min might indicate kidney disease and will be flagged. For additional information, see Arnold et al, Am J Kidney Dis. 2021;79(2):268- 288, A Unifying Approach for GFR estimation: Recommendations of the NKF-ASN Task Force on Reassessing the Inclusion of Race in Diagnosing Kidney Disease . Blood Structure of peripheral vein / Unknown Venipuncture / Unknown 12/27/2024 12:40 PM EDT 12/27/2024 12:40 PM EDT us Scott Goncalves MD LAB BLOOD ORDERABLES Final Resul t Performing Organization Address [facility] Co de Phone Number [facility] [address] [place] [id number], [place] * ECG 12 lead (12/25/2024 3:23 PM EDT) Ventricular Rate EKG 68 BPM MUSE EKG Atrial Rate 68 BPM MUSE EKG MI Interval 190 ms MUSE EKG QRS Interval 88 ms MUSE EKG QT Interval 410 ms MUSE EKG QTC Interval 435 ms MUSE EKG P Closter 46 degrees MUSE EKG R Closter -44 degrees MUSE EKG T Wave Closter -2 degrees MUSE EKG 12/25/2024 3:23 PM EDT 12/25/2024 5:17 PM EDT Impressions MUSE EKG - 12/25/2024 5:17 PM EDT SINUS RHYTHM WITH PREMATURE ATRIAL COMPLEXES LEFT AXIS DEVIATION POOR ' r ' WAVE PROGRESSION ABNORMAL ECG WHEN COMPARED WITH ECG OF 07-MAY-2024 15:40, NO SIGNIFICANT CHANGE WAS FOUND Confirmed by Scott Goncalves ([id number]) on 12/25/2024 5:17:27 PM us Scott Goncalves MD ECG ORDERABLES Final Result Performing Organization Address [facility] Co de Phone Number MUSE EKG * PROCEDURE - SCANNED (12/13/2024) us Onbase Scan Freddy SCANNED PROCEDURES Final Resu lt * (ABNORMAL) [facility] Pap w/HPV, mRNA E6/E7, Reflex 16/18/45 (10/17/2024 3:55 PM EDT) Clinical Information 10/23/2024 9:59 PM EDT [facility] Comment:ROUTINE, MENOPAUSE Lmp: 10/23/2024 9:59 PM EDT [facility] Comment:MENOPAUSE Prev. Pap: 10/23/2024 9:59 PM EDT [facility] Comment:2017- Prev. Bx 10/23/2024 9:59 PM EDT [facility] Comment:NONE GIVEN Source: 10/23/2024 9:59 PM EDT [facility] Comment:Cervix Statement Of Adequacy: 10/23/2024 9:59 PM EDT [facility] Comment: Satisfactory for evaluation. Endocervical/transformation zone component present. Interpretation/Resu lt: 10/23/2024 9:59 PM EDT [facility] Comment: Cytology Results: Negative for intraepithelial lesion or malignancy. Comment: 10/23/2024 9:59 PM EDT [facility] Comment: This Pap test has been evaluated with computer assisted technology. Roll Operator: 025 9:59 PM EDT [facility] Comment: DCR, CT(ASCP) CT screening location: [place] [address] Review Roll Operator 10/23/2024 9:59 PM EDT [facility] Comment: SL, CT(ASCP) CT screening location: [place] [address] Hpv Mrna E6/E7 Detected(A ) Not Detected 10/23/2024 9:59 PM EDT [facility] Comment: Methodology: Website Admin-Mediated Amplification This assay detects E6/E7 viral messenger RNA (mRNA) from 14 high-risk HPV types (16,18,31,33,35,39,45,51,52,56,58,59,66,68). Cervical sources are required for HPV testing. If a vaginal source from a patient who has had a total hysterectomy with removal of cervix was submitted, please contact the testing laboratory for alternative testing options. For additional information, please refer to http://education.Tempolib/faq/VZF210d2 (This link if provided for information/ educational purposes only.) EXPLANATORY NOTE: The Pap is a screening test for cervical cancer. It is not a diagnostic test and is subject to false negative and false positive results. It is most reliable when a satisfactory sample, regularly obtained, is submitted with relevant clinical findings and history, and when the Pap result is evaluated along with historic and current clinical information. Hpv 16 Rna NOT DETECTED NOT DETECTED 10/23/2024 9:59 PM EDT [facility] Hpv 18/45 Rna NOT DETECTED NOT DETECTED 10/23/2024 9:59 PM EDT [employer] [facility] Comment: Methodology: Website Admin Mediated Amplification Cervical sources are required for HPV testing. If a vaginal source from a patient who has had a total hysterectomy with removal of cervix was submitted, please contact the testing laboratory for alternative testing options. Brushing Cervix uteri structure / Unknown 10/17/2024 3:55 PM EDT Lbiia Bhat MD LAB [facility] Final Result [facility] [address] [facility] [address]rd [address], [place] [address], [place] [phone] [employer] [facility] [address] [place] [address] * HM Mammography, Bilateral (03/08/2024 2:56 PM EDT) Anatomical Region Laterality Modality Other us Unknown Provider HEALTH MAINTENANCE Final Res ult * (ABNORMAL) Microalbumin, Random Urine with Creatinine (02/24/2024 11:44 AM EDT) Microalbumin, Urine 3.5 mg/dL 02/24/2024 1:45 PM EDT [facility] CL[facility] PATHOLOG[facility] LAB[facility] Creatinine, Urine 347(H) 15 - 278 mg/dL 02/24/2024 1:45 PM EDT [facility] LAB[facility] Microalb/Creat Ratio, Random Urine 10.1 <30.0 mcg/mgCr [place] [facility] 02/24/2024 1:45 PM EDT [facility] LAB[facility] Comment: Microalbumin Reference Range: Normal <30 mcg/mg Creatinine Microalbuminuria 30-300 mcg/mg Creatinine Clinical Albuminuria >300 mcg/mg Creatinine Reference: ADA Guideline. Diabetes Care. 2004;27 (suppl 1) Urine Voided urine specimen / Unknown Non-Blood Collection / Unknown 02/24/2024 11:44 AM EDT 02/24/2024 11:44 AM EDT us Karen Reich MD LAB URINE ORDERABLES Final Re sult [facility] [address] [place] [address], [place] * DXA Axial and TBS (11/24/2023 2:07 PM EDT) Anatomical Region Laterality Modality Bone Densitometr y 11/24/2023 4:13 PM EDT Impressions 11/24/2023 4:26 PM EDT This patient has neither osteopenia nor osteoporosis. Compared to the prior study, there has been a decrease in the BMD/T value of the spine and no change in the BMD /T value of the hip. Thank you for the courtesy of this referral. If this radiology report contains a blank impression section, it is an incomplete radiology report. Please contact the interpreting radiologist or applicable radiology division as soon as possible to obtain the completed interpretation. Workstation ID: [id number] Narrative 11/24/2023 4:26 PM EDT EXAM: BONE MINERAL DENSITY PROCEDURE: The bone mineral density (BMD) of the spine and proximal right femur was determined using an external X-ray source (Down). SITE: [facility] COMPARISON: Prior BMD of 20 to FINDINGS: L1-L4: BMD 1.31gm/cm2 T-Score 2.3 Z-score: 4 prior BMD 1.33 Femoral neck: BMD 0.82gm/cm2 T-Score -0.3 Z-score: 1.1 Total hip: BMD 0.94 gm/cm2 T-Score 0 Z-score: 1.1 prior BMD 0.93 The World Health Organization (WHO) defines osteoporosis (as studied in post-menopausal women) as BMD with a T value of (-)2.5 or less at any site. Osteopenia is defined by a T value between (-)1.1 and (-)2.4. Trabecular bone score (TBS) L1-L4: TBS 1.23 Z-score: -1 (normal microarchitecture: >1.31; degraded: <1.24) In general, it is recommended that patients receive approximately 1000 mg of calcium daily, either from dairy products or supplements (including multiple vitamin). Patients should consider supplementing with vitamin D. Vitamin D recommendations should be discussed with Health Care Provider and measurement of vitamin D levels should be considered. Careful weight-bearing exercise is also useful in maintaining bone mass and to help protect against falls. Based on our precision data, a change of 1.5% in the spine or total hip is significant in the individual patient. Resulting Agency Comment [id number] Procedure Note Piotr Stapleton MD - 11/24/2023 EXAM: BONE MINERAL DENSITY PROCEDURE: The bone mineral density (BMD) of the spine and proximal rightfemur was determined using an external X-ray source (Hologic). SITE: [facility] COMPARISON: Prior BMD of 20 to FINDINGS: L1-L4: BMD 1.31gm/cm2 T-Score 2.3 Z-score: 4 prior BMD 1.33 Femoral neck: BMD 0.82gm/cm2 T-Score -0.3 Z-score: 1.1 Total hip: BMD 0.94 gm/cm2 T-Score 0 Z-score: 1.1 prior BMD 0.93 The World Health Organization (WHO) defines osteoporosis (as studied inpost-menopausal women) as BMD with a T value of (-)2.5 or less at anysite. Osteopenia is defined by a T value between (-)1.1 and (-)2.4. Trabecular bone score (TBS) L1-L4: TBS 1.23 Z-score: -1 (normal microarchitecture:>1.31; degraded: <1.24) In general, it is recommended that patients receive approximately 1000 mgof calcium daily, either from dairy products or supplements (includingmultiple vitamin). Patients should consider supplementing with vitamin D.Vitamin D recommendations should be discussed with Health Care Providerand measurement of vitamin D levels should be considered. Carefulweight-bearing exercise is also useful in maintaining bone mass and tohelp protect against falls. Based on our precision data, a change of 1.5% in the spine or total hip issignificant in the individual patient. IMPRESSION: This patient has neither osteopenia nor osteoporosis. Compared to theprior study, there has been a decrease in the BMD/T value of the spine andno change in the BMD /T value of the hip. Thank you for the courtesy of this referral. If this radiology report contains a blank impression section, it is anincomplete radiology report. Please contact the interpreting radiologistor applicable radiology division as soon as possible to obtain thecompleted interpretation. Workstation ID: [id number] us Bran Finn MD IMG DXA PROCEDURES Final Res ult * COLONOSCOPY (11/30/2022) Narrative Procedure Note Kenn [place] MD - 11/30/2022 1:41 PM EDT [facility] Gastroenterology Patient Name: Irish Choudhury Procedure Date: 11/30/2022 1:41 PM Date of : 1960 Admit Type: Outpatient Age: 61 Room: Room 1 Gender: Female Note Status: Finalized Attending MD: Kenn [place] MD Procedure: Colonoscopy Indications: Clinically significant diarrhea of unexplained origin Providers: Kenn [place] MD (Doctor) Referring MD: Karen Reich MD (Referring MD) Requesting Provider: Medicines: Fentanyl 25 micrograms IV, See the other procedure note for documentation of the administeredmedications Complications: No immediate 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s. Estimated Blood Loss: Estimated blood loss: none. Procedure: After I obtained informed consent, the scope was passed under direct vision. Throughout theprocedure, the patient's blood pressure, pulse, and oxygen saturations were monitored continuously. [id number] OLYMPUS [id number] was introduced through the anus and advanced to the terminal ileum, with identificationof the appendiceal orifice and IC valve. Thecolonoscopy was performed without difficulty. The patient tolerated the procedure well. The quality of thebowel preparation was good. The bowel preparation usedwas CoLyte via split dose instruction. Findings: The perianal and digital rectal examinations were normal. A patchy area of mucosa in the terminal ileum was mildlyerythematous. Biopsies were taken with a cold forceps for histology. Two sessile polyps were found in the ascending colon. The polyps were diminutive in size. These polyps were removed with a cold biopsy forceps. Resection and retrieval were complete. A 5 mm polyp was found in the descending colon. The polyp wassessile. The polyp was removed with a cold snare. Resection and retrieval were complete. A diminutive polyp was found in the sigmoid colon. The polyp was sessile. The polyp was removed with a cold biopsy forceps. Resectionand retrieval were complete. Normal mucosa was found in the entire colon. Biopsies for histologywere taken with a cold forceps from the entire colon for evaluation of microscopic colitis. The exam was otherwise without abnormality on direct and retroflexion views. Impression: - Erythematous mucosa in the terminal ileum.Biopsied. - Two diminutive polyps in the ascending colon, removed with a cold biopsy forceps. Resected and retrieved. - One 5 mm polyp in the descending colon, removedwith a cold snare. Resected and retrieved. - One diminutive polyp in the sigmoid colon,removed with a cold biopsy forceps. Resected andretrieved. - Normal mucosa in the entire examined colon.Biopsied. - The examination was otherwise normal on directand retroflexion views. Recommendation: - Discharge patient to home (ambulatory). - Await pathology results. - A letter will be mailed to you with yourpathology results. If you do not hear from us in 2 weeks,please call our office for results. - Repeat colonoscopy in 3 years for surveillance. Kenn [place] MD 11/30/2022 2:42:53 PM This report has been signed electronically. 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 Health Care Proxy 05/07/2024 5:30 AM Health Care Proxy 05/03/2024 1:57 PM Health Care Proxy 05/22/2013 12:00 AM 05/16/2013 * Full Code (Latest Code Status on File) Date Activated Date Inactivated Comments 05/07/2024 2:59 PM 05/11/2024 9:43 PM * Full Code Date Activated Date Inactivated Comments 05/07/2024 6:23 AM 05/07/2024 2:59 PM * Full Code Date Activated Date Inactivated Comments 08/18/2018 3:21 PM 08/23/2018 8:06 PM Care Teams Paediatric Thoracic Physician Relationship Specialty Start Date End Date Karen Reich MD [address] [place] [id number] PCP - General Internal Medicine 01/27/17
--- OUTSIDE RECORDS SUMMARY | 2025-03-12 14:58 | XMS_ITS | Clinical Summary ---
Author Organization [facility] Address [address] [place] [address] Care Team Providers Care Fire Sprinkler Installer Name Role Phone Karen Reich Primary Care Provider [phone] Allergies Active Allergy Reactions Criticality Noted Date Comments Sulfamethoxazole-Trime thoprim Hives,Other (See Comments) 07/08/2016 high fever and hives Lisinopril Other (See Comments) 07/08/2016 cough Medications WARFARIN SODIUM (COUMADIN ORAL) Take 2.5 mg by mouth daily. pt reports use of 2.5 to 5 mg/day Active levalbuterol (XOPENEX HFA) 45 mcg/actuation inhaler Inhale 1-2 puffs every 4 hours as needed. Active BUDESONIDE/FORM OTEROL FUMARATE (SYMBICORT INHL) Inhale. Active TIOTROPIUM BROMIDE (SPIRIVA WITH HANDIHALER INHL) Inhale. Active fluticasone (FLONASE) 50 mcg/actuation nasal spray 1 spray by Each Nare route daily. Active ATORVASTATIN CALCIUM (ATORVASTATIN ORAL) Take by mouth daily. Active FLUOXETINE HCL (FLUOXETINE ORAL) Take by mouth daily. Active OMEPRAZOLE ORAL Take by mouth daily. Active RANITIDINE HCL (ACID CONTROL, RANITIDINE, ORAL) Take by mouth daily. Active METOPROLOL SUCCINATE ORAL Take by mouth daily. Active METFORMIN HCL (METFORMIN ORAL) Take by mouth daily. Active MONTELUKAST SODIUM (MONTELUKAST ORAL) Take by mouth daily. Active HYDROCHLOROTHIA ZIDE ORAL Take by mouth daily. Active levonorgestrel (MIRENA) 20 mcg/24 hr (5 years) IUD 1 each by Intrauterine route once. Active Active Problems No known active problems Social History Tobacco Use Types Packs/Day Years Used Date Smoking Tobacco: Never Comments Unknown Sex and Gender Information Value Date Recorded Sex Assigned at Not on file Legal Sex Female 12:32 PM EST Gender Identity Not on file Sexual Orientation Not on file Last Filed Vital Signs Vital Sign Reading Time Taken Comments Blood Pressure 140/80 07/08/2016 11:20 AM EST Pulse 80 10/27/2016 5:00 PM EDT w/ pu lse ox. reading Temperature - - Respiratory Rate - - Oxygen Saturation 97% 10/27/2016 5:00 PM EDT seated and w/ exercise, >/= 97% Inhaled Oxygen Concentration - - Weight - - Height - - Body Mass Index - - Plan of Treatment Not on file [place] [address] [place] [address] Care Teams Fire Sprinkler Installer Relationship Specialty Start Date End Date Karen Reich [address] [place] [address] PCP - General 05/28/16
--- OUTSIDE RECORDS SUMMARY | 2025-03-12 14:58 | XMS_ITS | Encounter Summary ---
Author Organization [facility] Address [address] [place] [address] Care Team Providers Care Tube Lancer Name Role Phone Karen Reich Primary Care Provider [phone] Reason for Visit * Reason Comments Erroneous encounter-disregard E Encounter Details Date Type Department Care Team (Late st Contact Info) Description 04/13/2021 Orders Only [facility] [address] [place] [phone] Tony Cordon, PT Social History Tobacco Use Types Packs/Day Years Used Date Smoking Tobacco: Never Alcohol Use Standard Drinks/Week Comments Not Asked 0 (1 standard drink = 0.6 oz pur e alcohol) Comments No Sex and Gender Information Value Date Recorded Sex Assigned at Not on file Legal Sex Female 3:01 PM EDT Gender Identity Not on file Sexual Orientation Not on file documented as of this encounter Plan of Treatment Not on file documented as of this encounter Visit Diagnoses Diagnosis Chronic left hip pain Pain in joint, pelvic region and thigh documented in this encounter Care Teams Tube Lancer Relationship Specialty Start Date End Date Karen Reich [address] [place] [address] PCP - General Internal Medicine 12/05/14 documented as of this encounter
--- OUTSIDE RECORDS SUMMARY | 2025-03-12 14:58 | XMS_ITS | Encounter Summary ---
Author Organization [facility] Address [address] [place] [address] Care Team Providers Care Building Consultant Name Role Phone Karen Reich MD Primary Care Provider [phone] Encounter Details Date Type Department Care Team ([facility] st Contact Info) Description 03/04/2025 Documentation [facility] [address] [place] [address] Employee Relations Administrator: Keaton Reeder MD MS [address] [place] [address] Social History Tobacco Use Types Packs/Day Years Used Date Smoking Tobacco: Never Passive Smoke Exposure: Never Smokeless Tobacco: Never Comments:: Alcohol Use Standard Drinks/Week Comments Not Currently 0 (1 standard drink = 0.6 oz pur e alcohol) [facility] Utilities Answer Date Recorded In the [...] on file documented as of this encounter Progress Notes * Keaton Mane MD MS - 03/04/2025 12:00 AM EDT Anticoagulation Progress Report March 04, 2025 Name: IRISH HUSTON Reason for Treatment: Anti-phospholipid syndrome INR Range: 2.0-3.0 Date: 2025-03-04 16:32 Location: Anticoagulation Center, [facility] INR: 3.30 Tablet Strength: 5 mg Next INR: 8 days 2025-03-12 Progress Note: [facility] lab result Spoke with pt - dose verified, denies any extra doses. No changes to meds, diet, activity, or health. Denies Tylenol or Etoh use. Plan for one-time dose of 2.5mg today with same weekly dose. Next INR will be done at [facility] on 03/12. Pt aware to take 5mg on Sunday 03/11. Signature Note: Assessment by Chantelle Simmons RN; dosage by Chantelle Simmons RN Dosage Out: :[place]-2.5mg:M-5mg:T-2.5mg:W-2.5mg:Th-2.5mg:F-2.5mg:Sa-2.5mg: documented in this encounter Plan of Treatment Upcoming Encounters Date Type Department Care Team (Late st Contact Info) Description 03/13/2025 2:00 PM EDT Telehealth [facility] [address] [place], [place] [id number] Employee Relations Administrator: Al Zhou NP [address] [place] [address] Arrived 03/20/2025 1:30 PM EDT Follow-Up [facility] [address] [place] [address] Shawna Camara MD [address] [place] [address] 03/25/2025 1:00 PM EDT Evaluation [facility] at [address] [place] [address], [address] [address] Employee Relations Administrator: Keke Nath PT 03/28/2025 1:15 PM EDT Follow-Up [facility] at [address] [address] Reina Key, KYLAH [address] [place] [address] 03/28/2025 4:20 PM EDT Follow-Up [facility] Podiatry [address] [place] [address] Employee Relations Administrator: Mel Whitman NP [address] [place] [address] 05/07/2025 3:40 PM EDT Office Visit [facility] Plastic Cosmetic Surgery [address] [place] [address] Employee Relations Administrator: Segun Girard MD [address] [place] [address] 12/18/2025 1:00 PM EDT 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 [address] [place] [address] Libia Bhat MD [address] [place] [address] 12/23/2025 2:40 PM EDT Follow-Up [facility] Endocrinology Clinic [address] [place] [address] Employee Relations Administrator: Bran Hobbs MD [address] [place] [address] 12/23/2025 3:45 PM EDT Follow-Up [facility] B [address] [place] [address] Donnie Brasher MD [address] [place] [address] 12/24/2025 10:30 AM EDT Office Visit [facility] Diabetes Clinic [address] [place] [address] Employee Relations Administrator: Alfredo Rendon MD [address] [place] [address] 12/24/2025 1:00 PM EDT Follow-Up [facility] Rheumatology Clinic [address] [place] [address] Employee Relations Administrator: Ayse Resendiz MD [address] [place] [address] 12/27/2025 2:40 PM EDT Office Visit [facility] [address] [place] [address] Employee Relations Administrator: Martín Sanchez MD [address] [place] [address] 01/21/2026 3:30 PM EDT Follow-Up [facility] 4th floor Cardiology Medicine [address] [place] [address] Employee Relations Administrator: Scott Hutson MD [address] [place] [address] documented as of this encounter Visit Diagnoses Not on filedocumented in this encounter Care Teams Building Consultant Relationship Specialty Start Date End Date Karen Reich MD [address] [place] [address] PCP - General Internal Medicine 01/27/17 documented as of this encounter
--- OUTSIDE RECORDS SUMMARY | 2025-03-12 14:58 | XMS_ITS | Encounter Summary ---
Author Organization [facility] Address [address] [place] [address] Care Team Providers Care Mold Preparer Name Role Phone Karen Reich MD Primary Care Provider [phone] Encounter Details Date Type Department Care Team ([facility] st Contact Info) Description 04/26/2024 Orders Only [facility] Interventional Radiology [address] [place] [address] Lulu See, PA [address] [facility] Radiology [place], [place] [id number] Social History Tobacco Use Types Packs/Day Years Used Date Smoking Tobacco: Never Smokeless Tobacco: Never Comments:: Alcohol Use Standard Drinks/Week Comments Not Currently 0 (1 standard drink = 0.6 oz pur e alcohol) [facility] Utilities Answer Date Recorded In the past 12 months has th e electric, gas, oil, or water company threatened to shut off services in your home? No 02/23/2024 Hunger Vital Sign Answer Date Recorded Within the past 12 months, y ou worried that your food would run out before you got the money to buy more. Never true 02/23/20 24 Within the past 12 months, t he food you bought just didn't last and you didn't have money to get more. Never true 02/23/2024 Transportation Answer Date Recorded In the past 12 months, has l ack of reliable transportation kept you from medical appointments, meetings, work or from getting things needed for daily living? No 02/23/2024 Housing Answer Date Recorded Housing Risk Low Not on file 02/23/2024 Housing Risk Medium 1 02/23/2024 Housing Risk High 1 02/23/2024 What is your living situation today? LSNOSTEADY 02/23/2024 Comments No Sex and Gender Information Value [...] Info) Description 03/13/2025 2:00 PM EDT Telehealth [facility] Anticoagulation Clinic [address] [place] [address] Freight: Al Zhou NP [address] [place] [address] Arrived 03/20/2025 1:30 PM EDT Follow-Up [facility] [address] [place] [address] Shawna Camara MD [address] [place] [address] 03/25/2025 1:00 PM EDT Evaluation [facility] at [address] [place] [address], [address] Freight: Keke Nath PT 03/28/2025 1:15 PM EDT Follow-Up [facility] at [address] [phone] Reina Key OD [address] [place] [address] 03/28/2025 4:20 PM EDT Follow-Up [facility] Podiatry [address] [place] [address] Freight: Mel Whitman NP [address] [place] [address] 05/07/2025 3:40 PM EDT Office Visit [facility] Plastic Cosmetic Surgery [address] [place] [address] Freight: Segun Girard MD [address] [place] [address] 12/18/2025 1:00 PM EDT Office 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 [facility] cofferdam construction supervisor [address] [place] [address] Libia Bhat MD [address] [place] [address] 12/23/2025 2:40 PM EDT Follow-Up [facility] Endocrinology Clinic [address] [place] [address] Freight: Bran Hobbs MD [address] [place] [address] 12/23/2025 3:45 PM EDT Follow-Up [facility] B [address] [place] [address] Donnie Brasher MD [address] [place] [address] 12/24/2025 10:30 AM EDT Office Visit [facility] Diabetes Clinic [address] [place] [address] Freight: Alfredo Rendon MD [address] [place] [address] 12/24/2025 1:00 PM EDT Follow-Up [facility] Rheumatology Clinic [address] [place] [address] Freight: Ayse Resendiz MD [address] [place] [address] 12/27/2025 2:40 PM EDT Office Visit [facility] [address] [place] [address] Freight: Martín Sanchez MD [address] [place] [address] 01/21/2026 3:30 PM EDT Follow-Up [facility] Building 4th floor Cardiology Medicine [address] [place] [address] Freight: Scott Hutson MD [address] [place] [address] documented as of this encounter Visit Diagnoses Not on filedocumented in this encounter Care Teams Mold Preparer Relationship Specialty Start Date End Date Karen Reich MD [address] [place] [address] PCP - General Internal Medicine 01/27/17 documented as of this encounter
--- OUTSIDE RECORDS SUMMARY | 2025-03-12 14:58 | XMS_ITS | Encounter Summary ---
Author Organization [facility] Address [address] [place] [address] Care Team Providers Care Olive Packer Name Role Phone Karen Reich MD Primary Care Provider [phone] Encounter Details Date Type Department Care Team ([facility] st Contact Info) Description 03/09/2025 Results Follow-Up [facility] Internal Medicine [address] [place] [address] Karen Reich MD [address] [place] [address] Social History Tobacco Use Types Packs/Day Years Used Date Smoking Tobacco: Never Passive Smoke Exposure: Never Smokeless Tobacco: Never Comments:: Alcohol Use Standard Drinks/Week Comments Not Currently 0 (1 standard drink = 0.6 oz pur e alcohol) [facility] Utilities Answer Date Recorded In the past 12 months has [facility] electric, gas, oil, or water [employer] threatened to shut off services in your [...] Info) Description 03/13/2025 2:00 PM EDT Telehealth [facility] Anticoagulation Clinic [address] [place] [address] Computer Network And Systems Engineer: lA Zhou NP [address] [place] [address] Arrived 03/20/2025 1:30 PM EDT Follow-Up [facility] Eye Center [address] [place] [address] Shawna Camara MD [address] [place] [address] 03/25/2025 1:00 PM EDT Evaluation [facility] at [address] [place] [address], [address] [address] Computer Network And Systems Engineer: Keke Nath, PARI 03/28/2025 1:15 PM EDT Follow-Up [facility] at [address] [phone] Reina Key OD [address] [place] [address] 03/28/2025 4:20 PM EDT Follow-Up [facility] Podiatry [address] [place] [address] Computer Network And Systems Engineer: Mel Whitman NP [address] [place] [address] 05/07/2025 3:40 PM EDT Office Visit [facility] Plastic Cosmetic Surgery [address] [place] [address] Computer Network And Systems Engineer: Segun Girard MD [address] [place] [address] 12/18/2025 1:00 PM EDT Office Visit [facility] surgical brace maker [address] [place] [address] Libia Bhat MD [address] [place] [address] 12/23/2025 2:40 PM EDT Follow-Up [facility] Endocrinology Clinic [address] [place] [address] Computer Network And Systems Engineer: Bran Hobbs MD [address] [place] [address] 12/23/2025 3:45 PM EDT Follow-Up [facility] B [address] [place] [address] Donnie Brasher MD [address] [place] [address] 12/24/2025 10:30 AM EDT Office Visit [facility] Diabetes Clinic [address] [place] [address] Computer Network And Systems Engineer: Alfredo Rendon MD [address] [place] [address] 12/24/2025 1:00 PM EDT Follow-Up [facility] Rheumatology Clinic [address] [place] [address] Computer Network And Systems Engineer: Ayse Resendiz MD [address] [place] [address] 12/27/2025 2:40 PM EDT Office Visit [facility] Lung [facility] Allergy Center [address] [place] [address] Computer Network And Systems Engineer: Martín Sanchez MD [address] [place] [address] 01/21/2026 3:30 PM EDT Follow-Up [facility] Building 4th floor Cardiology Medicine [address] [place] [address] Computer Network And Systems Engineer: Scott Hutson MD [address] [place] [address] documented as of this encounter Visit Diagnoses Not on filedocumented in this encounter Care Teams Olive Packer Relationship Specialty Start Date End Date Karen Reich MD [address] [place] [address] PCP - General Internal Medicine 01/27/17 documented as of this encounter
== END 2025-03-12 13:42 | disposition home or self-care (01) ==
LOC: HO.LABR 13:41
PROVIDERS: PCP Internal Medicine; Visit Provider Nurse Practitioner Acute Care
DX: D68.61 Antiphospholipid syndrome (principal); I82.409 Acute embolism and thrombosis of unspecified deep veins of unspecified lower extremity
CPT/HCPCS: 36415; 85610

== ENCOUNTER 2025-04-10 13:38 | Outpatient (REF) | payer MEDICARE, BC, SELFPAY ==
--- OUTSIDE RECORDS SUMMARY | 2008-06-05 01:00 | XMS_ITS | Encounter Summary ---
Author Organization [facility] Address [address] [place] [address] [address] [place] [address] Phone Care Team Providers Care Home Health Caregiver Name Role Phone Unavailable Primary Care Provider Unavailabl e Reason for Visit * MRI/CAT Scan - Closed Specialty Diagnoses / Procedures Referred By Contac t Referred To Contact Procedures CT Abdomen Outside (No Interpretation) Sammi Moraes MD [address] [place], [place] [address] [place] [address] Phone: tel: fax: Referral ID Status Reason Start Date Expiration Date Visits Re quested Visits Authorized [id number] Closed 05/31/2016 05/31/2017 1 1 Encounter Details Date Type Department Care Team (Late st Contact Info) Description 06/05/2008 Hospital Encounter [facility] General Imaging [address] [place] [address] Sammi Moraes MD [address] [place] [address] [address] [place] [address] Social History Tobacco Use Types Packs/Day Years Used Date Smoking Tobacco: Never Smokeless Tobacco: Never Alcohol Use Standard Drinks/Week Comments Yes 0 (1 standard drink = 0.6 oz pur e alcohol) Rarely Education Answer Date Recorded Are you interested in more education? Not on gabriele e 11/17/2022 Are you concerned about learning? Not on file 11/17/2022 No 11/17/2022 No 11/17/2022 Digital Access Answer Date Recorded No 12/01/2022 No 12/01/2022 Reliable internet access at home? Not on file 12/01/2022 Device with a working camera? Not on file Comments Unknown Sex and Gender Information Value Date Recorded Sex Assigned at Not on file Legal Sex Female 7:02 PM EST Gender Identity Not on file Sexual Orientation Not on file documented as of this encounter Plan of Treatment Upcoming Encounters Date Type Department Care Team (Late st Contact Info) Description 12/23/2025 1:15 PM EDT [facility] [address] [place] [address] Cheyanne Galdamez MD [address] [place] [address] [address] [place] [address] documented as of this encounter Procedures Procedure Name Priority Date/Time Associated Diagnosis Comments CT ABDOMEN OUTSIDE (NO INTERPRETATION) Routine 06/05/2008 12:00 AM EST documented in this encounter Results * CT Abdomen Outside (No Interpretation) (06/05/2008 12:00 AM EST) Narrative [facility] [place] - 05/31/2016 2:20 PM EST This study is for PACS storage only and not for interpretation. us Sammi Moraes MD IMG OUTSIDE IMAGING W/OUT INTE RPRETATION Final Result [facility] [place] documented in this encounter Visit Diagnoses Not on filedocumented in this encounter Additional Source Comments The information contained in this document represents components of the legal health record. It is not the complete legal health record.[facility]
--- OUTSIDE RECORDS SUMMARY | 2015-01-06 | XMS_ITS | Encounter Summary ---
Author Organization [facility] Address [address] [place] [address] [place] [phone] Phone Care Team Providers Care Peanut Farmer Name Role Phone Karen Reich MD Primary Care Provider Reason for Visit * MRI/CAT Scan - Closed Specialty Diagnoses / Procedures Referred By Contac t Referred To Contact Procedures CT Abdomen Outside (No Interpretation) Sammi Moraes MD [address] [place] [address] Phone: tel: fax: Referral ID Status Reason Start Date Expiration Date Visits Re quested Visits Authorized [id number] Closed 05/31/2016 05/31/2017 1 1 Encounter Details Date Type Department Care Team (Late st Contact Info) Description 01/06/2015 Hospital Encounter [facility] [address] [place] [address] Sammi Moraes MD [address] [place] [address] Social History Tobacco Use Types Packs/Day Years [...] Visit [facility] [address] [place] [address] Cheyanne Galdamez MD [address] [place] [address] [address] [place] [address] documented as of this encounter Procedures Procedure Name Priority Date/Time Associated Diagnosis Comments CT ABDOMEN OUTSIDE (NO INTERPRETATION) Routine 01/06/2015 12:00 AM EDT documented in this encounter Results * CT Abdomen Outside (No Interpretation) (01/06/2015 12:00 AM EDT) Narrative [facility] [place] [place] - 05/31/2016 2:20 PM EST This study is for PACS storage only and not for interpretation. Sammi Moraes MD IMG OUTSIDE IMAGING W/OUT INTE RPRETATION Final Result [facility] [place] [facility] [place] documented in this encounter Visit Diagnoses Not on filedocumented in this encounter Care Teams Peanut Farmer Relationship Specialty Start Date End Date Karen Reich MD [address] [place] [address] PCP - General 01/07/14 documented as of this encounter Additional Source Comments The information contained in this document represents components of the legal health record. It is not the complete legal health record.[facility]
[2025-04-10 14:27] LABS: INTERNATIONAL NORM RATIO 1.4 (0.9-1.1); Prothrombin Time 16.0 SEC (10.9-12.4)
--- OUTSIDE RECORDS SUMMARY | 2025-04-10 14:55 | XMS_ITS | Encounter Summary ---
Author Organization [facility] Address [address] [place] [address] [address] [place] [address] Phone Care Team Providers Care Chemical Blender Name Role Phone Karen Reich MD Primary Care Provider Terrell Canales MD Unavailable [phone] Anjana Luna MD Unavailable [phone] Daniel Frederick MD Unavailable [phone] Aston Bolanos MD Unavailable [phone] Encounter Details Date Type Department Care Team (Late Contact Info) Description 08/03/2016 Procedure Pass [facility] [address] [place] [address] Social History Tobacco Use Types Packs/Day Years [...] Department Care Team (Late Contact Info) Description 12/23/2025 1:15 PM EDT [facility] [address] [place] [phone] Cheyanne Galdamez MD [address] [place] [address] [address] [place] [address] documented as of this encounter Visit Diagnoses Not on filedocumented in this encounter Additional Health Concerns Assessment Noted Time PHQ-2 Depression Total Score: 0 06/08/20 16 1:53 PM EST documented as of this encounter Care Teams Chemical Blender Relationship Specialty Start Date End Date Karen Reich MD [address] [place] [address] PCP - General 01/07/14 Terrell Canales MD [address] [place] [address] General Surgery 02/15/19 Anjana Luna MD [address] [place] [address] [email or web address] Hematology and Oncology 02/15/19 Daniel Frederick MD [address] [place] [address] [email or web address] Radiation Oncology 02/15/19 Aston Bolanos MD [address] [place] [address] [email or web address] Cardiology 02/26/19 documented as of this encounter Additional Source Comments The information contained in this document represents components of the legal health record. It is not the complete legal health record.[facility]
--- OUTSIDE RECORDS SUMMARY | 2025-04-10 14:55 | XMS_ITS | Clinical Summary ---
Author Organization [facility] Address [address] [place] [address] Phone Care Team Providers Care Meteorology Faculty Member Name Role Phone Physician, No Pcp Primary Care Provider Unavaila ble Immunizations Immunization Administration Dates Next Due Pfizer SARS-CoV-2 COVID-19, [...] Last Done Comments Breast Cancer Screening 1959 Colorectal Cancer Screening: Colonoscopy 1959 Diabetes: Annual GFR (Glomerular Filtration Rate) 1959 Diabetes: Annual Foot Exam 12/21/1969 Diabetes: Annual Retina Eye Exam 12/21/1969 Cervical Cancer Screening: Pap Smear 12/21/1980 RSV Immunization Adult Patients (1 - Risk 60-74 years 1-dose series) 2019 Pneumococcal Vaccine: 50+ Years (3 of 3 - PCV) 12/01/2022 12/01/2021, 07/15/2011, 07/15/2011 Hepatitis C Screening 02/10/2024 Osteoporosis Screening (Bone [...] patient's age to complete this topic Insurance [facility] Care Teams Meteorology Faculty Member Relationship Specialty Start Date End Date Physician, No Pcp PCP - General 05/12/22
--- OUTSIDE RECORDS SUMMARY | 2025-04-10 14:56 | XMS_ITS | Clinical Summary ---
Author Organization [facility] Address [address] [place] [address] Care Team Providers Care Cash Shortage Investigator Name Role Phone Karen Reich MD Primary Care Provider [phone] Allergies Active Allergy Reactions Criticality Noted Date Comments Sulfamethoxazole-Trimethoprim Hives Medium 2015 Lisinopril Other (See Comments) Medications atorvastatin (LIPITOR) 40 MG tablet Take 40 mg by mouth at bedtime. Active FLUoxetine (PROzac) 20 MG capsule Take 20 mg by mouth daily. Active fluticasone propionate (FLONASE) 50 MCG/ACT nasal spray by Each Nostril route daily. Active hydrochlorothiazid e (HYDRODIURIL) 50 MG tablet Take by mouth daily. Active ketoconazole (NIZORAL) 2 % cream Apply 1 application topically daily. Active losartan (COZAAR) 100 MG tablet Take 100 mg by mouth daily. Active metFORMIN (GLUCOPHAGE) 500 MG tablet Take 500 mg by mouth 2 (two) times a day with meals. Active metoprolol succinate (TOPROL-XL) 100 MG extended release tablet Take 100 mg by mouth daily. Active montelukast (SINGULAIR) 10 MG tablet Take 10 mg by mouth at bedtime. Active omeprazole (PriLOSEC) 40 MG delayed release capsule Take 40 mg by mouth daily. Active ondansetron (ZOFRAN-ODT) 8 MG disintegrating tablet Take 8 mg by mouth every 8 (eight) hours as needed for nausea or vomiting. Active albuterol sulfate (PROAIR HFA) 108 (90 BASE) MCG/ACT inhalation aerosol Inhale 2 puffs every 4 (four) hours as needed for wheezing or shortness of breath. Active lactobacillus rhamnosus (CULTURELLE) capsule Take 1 capsule by mouth 2 (two) times a day. Active hydrocortisone (ANUSOL-HC) 2.5 % rectal cream Insert into the rectum 2 (two) times a day. Active ranitidine (ZANTAC) 300 MG capsule Take 300 mg by mouth every evening. Active tiotropium (SPIRIVA HANDIHALER) [address] 18 mcg into inhaler and inhale daily. For oral inhalation only; do not swallow capsule Active budesonide-formote rol (SYMBICORT) 160-4.5 MCG/ACT inhalation aerosol Inhale 2 puffs 2 (two) times a day. Active warfarin (CoumaDIN) 5 MG tablet Take 5 mg by mouth daily. Active levalbuterol (XOPENEX HFA) 45 MCG/ACT inhalation aerosol Inhale 2 puffs. Acti ve theophylline (HI-24) 200 MG extended release 24 hr capsule Take 1 capsule (200 mg total) by mouth daily. 30 capsule 11 12/17/19 18 Active predniSONE (DELTASONE) 20 MG tabletIndications: URI (upper respiratory infection),Asthma exacerbation Take 3 tablets (60 mg total) by mouth daily for 10 days. 30 tablet 12/29/19 18 Active predniSONE (DELTASONE) 5 MG tabletIndications: Asthma exacerbation Take 1 tablet (5 mg total) by mouth daily. 30 tablet 1 02/10/20 18 Active predniSONE (DELTASONE) 10 MG tabletIndications: Severe asthma with acute exacerbation TAKE 5 TABLETS (50 MG TOTAL) BY MOUTH DAILY. FOR 1 WEEK, TAPER BY 5 MG EACH WEEK. 126 tablet 1 06/12/20 18 Active Active Problems No known active problems Family History Medical History Relation Name Comments Diabetes Father Cerebral aneurysm Mother Diabetes Mother Stroke Mother Relation Name Status Comments Father Mother Social History Tobacco Use Types Packs/Day Years Used Date Smoking Tobacco: Never Smokeless Tobacco: Never Alcohol Use Standard Drinks/Week Comments Yes 0 (1 standard drink = 0.6 oz pur e alcohol) occasional Comments No Sex and Gender Information Value Date Recorded Sex Assigned at Not on file Legal Sex Female 11:40 AM EDT Gender Identity Not on file Sexual Orientation Not on file Last Filed Vital Signs Vital Sign Reading Time Taken Comments Blood Pressure 120/82 07/17/2018 1:28 PM EST Pulse 72 07/17/2018 1:28 PM EST Temperature 36.6 C (97.9 F) 07/17/2018 1:28 PM EST Respiratory Rate - - Oxygen Saturation 99% 07/17/2018 1:28 PM EST Inhaled Oxygen Concentration - - Weight 97.6 kg (215 lb 3.2 oz) 07/17/2018 1:28 P M EST Height 165.1 cm (5' 5 ) 07/17/2018 1:28 PM EST Body Mass Index 35.81 07/17/2018 1:28 PM EST Plan of Treatment Health Maintenance Due Date Last Done Comments Annual Physical 12/21/1962 Hepatitis B Screening 12/21/1977 Hepatitis C Screening 12/21/1977 DTaP,Tdap,and Td Vaccines (1 - Tdap) 12/21/1978 Breast Cancer Screening [address] CT Colonography 12/21/2004 Cholesterol Screening 12/21/2004 Colonoscopy 12/21/2004 Colorectal Cancer Screening 12/21/2004 FIT-DNA 12/21/2004 FOBT 12/21/2004 Sigmoidoscopy 12/21/2004 Zoster Standard Vaccine (1 o f 2) 12/21/2009 Pneumococcal Vaccines 50+ yr s (2 of 2 - PCV) 07/15/2012 07/15/2011, 07/15/2011 RSV Immunization Patients 60 + years or (1 - Risk 60-74 years 1-dose series) 2019 Bone Density Scan 12/21/2024 COVID-19 Vaccine (1 - 2023-2 5 season) 2025 Influenza Vaccine (#1) 2025 8, 07/15/2011, 04/26/2008 HIB Vaccines Aged Out No longer eligi ble based on patient's age to complete this topic Hepatitis A Vaccine Aged Out No longe r eligible based on patient's age to complete this topic Insurance [facility] PPO [facility] PPO Advance Directives For more information, please contact: [phone] Documents on File Type Date Recorded Patient 

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
--- OUTSIDE RECORDS SUMMARY | 2025-04-10 14:56 | XMS_ITS | Clinical Summary ---
Author Organization [facility] Address [address] [place] [address] Care Team Providers Care Audiology Assistant Name Role Phone Karen Reich Primary Care Provider [phone] Allergies Active Allergy Reactions Criticality Noted Date [...] Plan of Treatment Not on file [place] [address] [place] [address] Care Teams Audiology Assistant Relationship Specialty Start Date End Date Karen Reich [address] [place] [address] PCP - General 05/28/16
--- OUTSIDE RECORDS SUMMARY | 2025-04-10 14:56 | XMS_ITS | Clinical Summary ---
Author Organization [facility] Address [address] [place] [address] Care Team Providers Care Dragline Operator Helper Name Role Phone Karen Reich Primary Care Provider [phone] Allergies Active Allergy Reactions Criticality Noted Date [...] [employer] FEE FOR SERVICE PPO Care Teams Dragline Operator Helper Relationship Specialty Start Date End Date Karen Reich [address] [place] [phone] PCP - General Internal Medicine 12/05/14
--- OUTSIDE RECORDS SUMMARY | 2025-04-10 14:56 | XMS_ITS | Encounter Summary ---
Author Organization [facility] Address [address] [place] [address] [address] [place] [address] Phone Care Team Providers Care Go Cart Mechanic Name Role Phone Karen Reich MD Primary Care Provider Terrell Canales MD Unavailable [phone] Anjana Luna MD Unavailable [phone] Daniel Frederick MD Unavailable [phone] Aston Bolanos MD Unavailable [phone] Encounter Details Date Type Department Care Team (Late Contact Info) Description 05/31/2016 Procedure Pass [facility] Imaging [address] [place] [address] Social History Tobacco Use Types Packs/Day Years [...] Office Visit [facility] [address] [place] [phone] Cheyanne Galdamez MD [address] [place] [address] [address] [place] [address] documented as of this encounter Visit Diagnoses Not on filedocumented in this encounter Care Teams Go Cart Mechanic Relationship Specialty Start Date End Date Karen Reich MD [address] [place] [address] PCP - General 01/07/14 Terrell Canales MD [address] [place] [address] General Surgery 02/15/19 Anjana Luna MD [address] [place] [address] [email or web address] Hematology and Oncology 02/15/19 Daniel Frederick MD [address] [place] [address] [email or web address] Radiation Oncology 02/15/19 Aston Bolanos MD [address] [place] [address] [email or web address] Cardiology 02/26/19 documented as of this encounter Additional Source Comments The information contained in this document represents components of the legal health record. It is not the complete legal health record.[facility]
--- OUTSIDE RECORDS SUMMARY | 2025-04-10 14:56 | XMS_ITS | Encounter Summary ---
Author Organization [facility] Address [address] [place] [address] [address] [place] [address] Phone Care Team Providers Care Garage Construction Equipment Mechanic Name Role Phone Karen Reich MD Primary Care Provider Terrell Canales MD Unavailable [phone] Anjana Luna MD Unavailable [phone] Daniel Frederick MD Unavailable [phone] Aston Bolanos MD Unavailable [phone] Encounter Details Date Type Department Care Team (Late Contact Info) Description 05/31/2016 Procedure Pass [facility] Imaging [address] [place] [address] Social History Tobacco Use Types Packs/Day Years [...] Office Visit [facility] [address] [place] [phone] Cheyanne Galdamez MD [address] [place] [address] [address] [place] [address] documented as of this encounter Visit Diagnoses Not on filedocumented in this encounter Care Teams Garage Construction Equipment Mechanic Relationship Specialty Start Date End Date Karen Reich MD [address] [place] [address] PCP - General 01/07/14 Terrell Canales MD [address] [place] [address] General Surgery 02/15/19 Anjana Luna MD [address] [place] [address] [email or web address] Hematology and Oncology 02/15/19 Daniel Frederick MD [address] [place] [address] [email or web address] Radiation Oncology 02/15/19 Aston Bolanos MD [address] [place] [address] [email or web address] Cardiology 02/26/19 documented as of this encounter Additional Source Comments The information contained in this document represents components of the legal health record. It is not the complete legal health record.[facility]
--- OUTSIDE RECORDS SUMMARY | 2025-04-10 14:56 | XMS_ITS | Encounter Summary ---
Author Organization [facility] Address [address] [place] [address] Care Team Providers Care Field Irrigation Worker Name Role Phone Karen Reich Primary Care Provider [phone] Reason for Visit * Reason Comments Erroneous encounter-disregard E Encounter Details Date Type Department Care Team (Late st Contact Info) Description 04/13/2021 Orders Only [facility] [address] [place] [phone] Tony Cordon, PT Social History Tobacco [...] thigh documented in this encounter Care Teams Field Irrigation Worker Relationship Specialty Start Date End Date Karen Reich [address] [place] [address] PCP - General Internal Medicine 12/05/14 documented as of this encounter
== END 2025-04-10 13:39 | disposition home or self-care (01) ==
LOC: HO.LABR 13:38
PROVIDERS: PCP Internal Medicine; Visit Provider Nurse Practitioner Acute Care
DX: D68.61 Antiphospholipid syndrome (principal); I82.409 Acute embolism and thrombosis of unspecified deep veins of unspecified lower extremity
CPT/HCPCS: 36415; 85610